=== PATIENT | female | born 1990 | race Caucasian/White ===

== ENCOUNTER 2020-03-13 05:30 | Inpatient (IN) ==
--- NOTE | 2020-03-12 15:50 | History & Physical Report ---
Date of Service March 12, 2020 Assessment & Plan (1) Previous delivery affecting , antepartum: Repeat section and bilateral tubal ligation. The patient was counseled to the nature of the procedure including alternatives such as labor. Risks were discussed including bleeding infection injury to bowel bladder ureter vessels and even baby. The risks of internal organ injury were discussed as being higher with prior sections. Deep Vein Thrombosis, pulmonary embolus and breakdown of the incision discussed. Deep vein thrombosis pulmonary embolus hernia and failure of the incision to heal were discussed Patient verbalized understanding of this and was given ample time to ask questions History of PP depression, wishes to go on pregesterone after. Discussed how this is non standard treatment, but she states it has worked in the past. History of Present Illness Primary Care Provider: NO PCP Planned repeat C/S x3 and tubal ligation, will be over 39 weeks completed GA. previos Hx of GHTN, not this Allergies Allergy/AdvReac Type Severity Reaction Status Date / Time azithromycin Allergy Severe Rash Verified 03/12/20 08:17 loratadine Allergy Severe Rash Verified 03/12/20 08:17 latex Allergy Intermediate Rash Verified 03/12/20 08:17 Home Medications Home Medications Medication Instructions Recorded Confirmed Type aspirin 81 mg tablet,delayed 81 mg PO QPM 02/03/20 03/12/20 History release cholecalciferol (vitamin D3) 100 4,000 units PO QPM 02/03/20 03/12/20 History mcg (4,000 unit) capsule docusate sodium 100 mg capsule 100 mg PO QPM 02/03/20 03/12/20 History fexofenadine 60 mg tablet 30 mg PO QPM 02/03/20 03/12/20 History prenat.vits,abiel,qtr-jezg-yjsfd 1 tab PO QPM 02/03/20 03/12/20 History pyridoxine (vitamin B6) 25 mg 25 mg PO QPM 02/03/20 03/12/20 History tablet aripiprazole [Abilify] 2 mg PO QPM 03/10/20 03/12/20 History diphenhydramine HCl [Benadryl] 25 mg PO QPM 03/10/20 03/12/20 History doxylamine-pyridoxine (vit B6) 1 tab PO QPM 03/10/20 03/12/20 History [Diclegis] magnesium 400 mg PO QPM 03/10/20 03/12/20 History sertraline [Zoloft] 50 mg PO QPM 03/10/20 03/12/20 History Patient History Medical History Anxiety and depression Bipolar 1 disorder GERD (gastroesophageal reflux disease) gestational Gestational hypertension H/O pre-eclampsia in prior , currently Hx of migraines Hx of varicella Nausea and vomiting after administration of anesthetic agent s/p epidural depression Surgical History (Updated 03/10/20 @ 15:20 by Kay Hughes, RN) H/O section x 2 H/O laparoscopy History of ovarian cystectomy History of tooth extraction Social History (Updated 02/03/20 @ 13:26 by Cici Kamara) Preferred Language: Barbadian Administrative Aide Required: No Beliefs That Will Affect Care: None marital status: marital status details: Lowell Chen (41) [phone] Current Living Situation: Family Current Living Situation Comment: lives with and children, 2 cats, does not change litter Feels Safe at Home: Yes Smoking Status: Never smoker Hx Alcohol Use: No Hx Substance Use: No Physical Exam Constitutional: WD/WN, vitals as above Respiratory: normal respiratory effort, lungs clear to auscultation Cardiovascular: RRR, no murmur, no edema Gastrointestinal (Abdomen): normal bowel sounds, soft, nontender, no hepatosplenomegaly Genitourinary: OB Exam Abdomen: + heart tones Coding Level of Care Code None Diagnoses Previous delivery affecting , antepartum O34.219
[2020-03-13] MEDS ORDERED: LR 15ML/HR IV SCH (06:00)
[2020-03-13] MEDS ORDERED: CITRIC ACID/SODIUM CITRATE 15 ML UDC PO SCH (06:00)
[2020-03-13] MEDS ORDERED: LACTATED RINGER'S 1,000 ML IV SCH ×2 (06:00→08:56)
[2020-03-13] MEDS ORDERED: CEFAZOLIN 3,000 MG in DEXTROSE 5% 50 ML IV SCH (06:00)
[2020-03-13] MEDS ORDERED: CEFAZOLIN 3000MG 72.5 ML IV SCH (06:00)
[2020-03-13 06:28] LABS: Eosinophils # (auto) 0.05 K/uL (0-0.5); Eosinophils % (auto) 0.8 %; Hematocrit (blood only) 30.6 % (37-47); Hemoglobin 10.1 g/dL (12.0-16.0); Immature Granulocytes # (auto) 0.02 K/uL (0.00-0.02); Immature Granulocytes % (auto) 0.3 %; Lymphocytes # (auto) 1.48 K/uL (1.2-3.4); Lymphocytes % (auto) 24.4 %; Mean Corpuscular Hemoglobin 28.8 pg (25-34); Mean Corpuscular Volume 87.2 fL (80-100); Monocytes # (auto) 0.57 K/uL (0.11-0.59); Monocytes % (auto) 9.4 %; Neutrophils # (auto) 3.94 K/uL (1.4-6.5); Neutrophils % (auto) 65.1 %; Platelet Count 172 K/uL (130-400); RDW Standard Deviation 44.1 fL (36.4-46.3); Red Blood Count 3.51 M/uL (4.2-5.4); White Blood Count 6.06 K/uL (4.8-10.8)
--- NOTE | 2020-03-13 06:38 | Anesthesiology Consultation ---
Date of Service March 13, 2020 Assessment & Plan (1) Encounter for pre-operative examination: Chart Review Chart Review: Acceptable Risk for Surgery Consults Requested none ASA ASA3 Proposed Anesthesia Anesthesia Type: Spinal Risk / Benefits Reviewed With: PT / POA / Parent / Guardian, Accepts Plan and Informed Consent Obtained History Surgery Operation Date: 03/13/20 07:30 Proposed Procedures p Section, - Asia Lemos MD, FACOG s Post Tubal Ligation - Asia Lemos MD, FACOG Height/Weight Height: 5 ft 6 in Weight: 115.212 kg Allergies Allergy/AdvReac Type Severity Reaction Status Date / Time azithromycin Allergy Severe Rash Verified 03/12/20 08:17 loratadine Allergy Severe Rash Verified 03/12/20 08:17 latex Allergy Intermediate Rash Verified 03/12/20 08:17 Medications Home Medications Medication Instructions Recorded Confirmed Last Taken aspirin 81 mg tablet,delayed 81 mg PO QPM 02/03/20 03/12/20 Unknown release cholecalciferol (vitamin D3) 100 4,000 units PO QPM 02/03/20 03/12/20 Unknown mcg (4,000 unit) capsule docusate sodium 100 mg capsule 100 mg PO QPM 02/03/20 03/12/20 Unknown fexofenadine 60 mg tablet 30 mg PO QPM 02/03/20 03/12/20 Unknown prenat.vits,abiel,avg-zuru-rqhmn 1 tab PO QPM 02/03/20 03/12/20 Unknown pyridoxine (vitamin B6) 25 mg 25 mg PO QPM 02/03/20 03/12/20 Unknown tablet aripiprazole [Abilify] 2 mg PO QPM 03/10/20 03/12/20 Unknown diphenhydramine HCl [Benadryl] 25 mg PO QPM 03/10/20 03/12/20 Unknown doxylamine-pyridoxine (vit B6) 1 tab PO QPM 03/10/20 03/12/20 Unknown [Diclegis] magnesium 400 mg PO QPM 03/10/20 03/12/20 Unknown sertraline [Zoloft] 50 mg PO QPM 03/10/20 03/12/20 Unknown Active Medications Generic Name Dose Route Start Last Admin Trade Name Freq PRN Reason Stop Dose Admin Lactated Ringer's 1,000 mls @ 999 mls/hr 03/13/20 06:00 03/13/20 05:47 Lr IV 03/13/20 07:00 999 mls/hr .Q1H1M PAULO Administration NPO Date Last Intake of Fluids: 03/12/20 Time Last Intake of Fluids: 23:00 Date Last Intake of Solids: 03/12/20 Time Last Intake of Solids: 20:00 Past Medical History Medical History Anxiety and depression taking Zoloft Bipolar 1 disorder GERD (gastroesophageal reflux disease) gestational Gestational hypertension H/O pre-eclampsia in prior , currently Hx of migraines Hx of varicella Nausea and vomiting after administration of anesthetic agent s/p epidural depression Exercise / Class Metabolic Activity II 4-5 Yardwork/Stairs/Walk up hill Past Family History Family History Father , age 39 Kidney disease Renal failure Mother Breast cancer Dyslipidemia Grandfather (Paternal) Parkinson disease Grandfather (Maternal) Alzheimer disease Brother Epilepsy Past Surgical History Surgical History H/O section x2, 01/2017 [facility], pre-eclampsia, 05/2018 [facility] repeat C/S H/O laparoscopy History of ovarian cystectomy History of tooth extraction Past Anesthesia History No Hx of Anesthesia Complications and No Family Hx of Anesthesia Complications History of PONV No Hx of PONV and No Hx of Motion Sickness Social History Smoking Status: Never smoker Do You Dip or Chew Tobacco: No Hx Alcohol Use: No Hx Substance Use: No substance use type: does not use Physical Exam Vital Signs Last Vital Signs Temp 98.4 F 03/13/20 05:41 Pulse 91 H 03/13/20 05:41 Resp 18 03/13/20 05:41 BP 138/74 03/13/20 05:41 ENMT Mouth: no dentition abnormality Thyromental Distance: > or= 3.5 Finger Breadths Mallampati Class: II Neck normal visual inspection Respiratory normal respiratory effort Auscultation: lungs clear to auscultation bilaterally Cardiovascular Rate/Rhythm: regular rate and regular rhythm Testing Laboratory Results 03/13/20 06:08
[2020-03-13] MEDS ORDERED: OXYTOCIN 10 UNITS/ML VIAL ONE (06:42)
[2020-03-13] MEDS ORDERED: fentaNYL citrate 100 MCG/2 ML VIAL ONE (06:42)
[2020-03-13] MEDS ORDERED: MoRPHine SULFATE PF 1 MG/ML 10 ML AMP/VIAL ONE (06:42)
--- NOTE | 2020-03-13 07:17 | History & Physical Bridge Note ---
Date of Service March 13, 2020 History & Physical Bridge Note I have examined the patient, reviewed the History & Physical and in the interval since the performance of the History & Physical I have noted the following changes of clinical significance: no changes noted
[2020-03-13] MEDS ORDERED: PHENYLEPHRINE 100MCG/ML 5ML SYR ONE (07:48)
[2020-03-13] MEDS ORDERED: ONDANSETRON INJ 2 MG/ML 2 ML VIAL ONE (07:48)
[2020-03-13] MEDS ORDERED: ePHEDrine sulfate 50 MG/ML AMP IV PRN (07:49)
[2020-03-13] MEDS ORDERED: MoRPHine SULFATE PF 1 MG/ML 10 ML AMP/VIAL INT SPINAL ONE (07:49)
[2020-03-13] MEDS ORDERED: NALBUPHINE HCL INJ 10 MG/ML AMP IV PRN (07:49)
[2020-03-13] MEDS ORDERED: DiphenhydrAMINE HCL 50 MG/ML VIAL IV PRN (07:49)
[2020-03-13] MEDS ORDERED: NALOXONE HCL 1 MG in SODIUM CHLORIDE 0.9% 1000ML 1,000 ML IV PRN (07:49)
[2020-03-13] MEDS ORDERED: LACTATED RINGER'S 500 ML IV PRN (07:49)
[2020-03-13] MEDS ORDERED: NALOXONE HCL 0.08 MG in SYRINGE 1.8 ML IV PRN (07:49)
[2020-03-13] MEDS ORDERED: NALOXONE HCL 0.4 MG/1 ML VIAL/CARP IV PRN (07:49)
[2020-03-13] MEDS ORDERED: ONDANSETRON INJ 2 MG/ML 2 ML VIAL IV PRN (07:49)
[2020-03-13] MEDS ORDERED: SODIUM CHLORIDE 0.9% 1000ML 1,000 ML IV SCH (08:00)
[2020-03-13] MEDS ORDERED: NO NARCOTICS OR SEDATIVES SCH (08:00)
[2020-03-13 08:25] LABS: Base Excess Cord Arterial Bld -5.4 mEq/L (-9-1.8); CO2 Cord Arterial Blood 40 mmHg (39.1-73.5); HCO3 Cord Arterial Blood 20 mmol/L (19.7-28.5); PO2 Cord Arterial Blood 33 mmHg (4.1-31.7); pH Cord Arterial Blood 7.32 (7.1-7.38)
[2020-03-13 08:29] LABS: Base Excess Cord Venous Blood -5.6 mEq/L (-7.7-1.9); Cord Venous Blood HCO3 20 mmol/L (18.4-26.8); Cord Venous Blood PCO2 38 mmHg (30.4-57.2); Cord Venous Blood PO2 32 mmHg (14.1-43.3); Cord Venous Blood pH 7.33 (7.20-7.44)
--- NOTE | 2020-03-13 08:37 | Operative Report ---
PG Post Operative Report Pre & Post Diagnosis Operation Date: 03/13/20 07:30 Pre-Op Diagnosis: Repeat Caesarean Section times three; Requests Tubal Ligation Post-Op Diagnosis: Same; Delivery of a live female child at 0757 I identified the patient and participated in the time-out.: Yes Procedure Operation Date: 03/13/20 07:30 Actual Procedures p Section, - Asia Lemos MD, FACOG s Post Tubal Ligation - Asia Lemos MD, FACOG Surgeon Asia Lemos MD, FACOG Recreation Supervisor Dr. Davila Estimated Blood Loss 600 Findings Consistent with Post-Op Diagnosis Specimens cord blood and gases Description of Procedure Regional anesthetic was given by anesthesia patient had a Solomon catheter inse rted by nursing patient was prepped and draped in supine position with a leftward tilt preoperative antibiotics were given timeout performed Pickups with teeth were used to test the skin site and it was found adequate for incision scalpel used to make a Pfannenstiel incision cutting down through subcutaneous fat through the fascia fascia was then dissected laterally with the curved Rothman's fascia was released superiorly and inferiorly from the rectus muscles with the curved Rothman scissors, rectus muscle split peritoneal cavity entered in a superior location. Opening enlarged to allow exposure bladder retractor placed Metzenbaums used to dissect away the bladder flap low segment transverse incision made on the uterus with scalpel entry was done bluntly with the benzene still utility operator's finger hysterotomy incision extended with the benzene still utility operator's finger in the usual fashion baby was delivered then by flexion of the head and pressure from the senior executive assistant on the abdomen mouth and then nares were suctioned baby was then delivered fully without difficulty without excessive force live vigorous infant cord clamped and cut cord gases obtained cord blood obtained placenta removed manually within ensured all placenta removed with a moist lap sponge uterus exteriorized IV Pitocin had been started by anesthesia and uterine tone improved. The uterus was closed in 2 layers first layer and 0 Monocryl running locked second layer 0 Monocryl nonlocked. Tubal ligation performed by grasping the isthmic portion of right tube with silvia, ligating 2 times with suture, then tubal segment cut with Liz. Same exact process with the left side. Small left paratubal cyst noted. after generous irrigation and suction of the cul-de-sac and bladder flap regions hemostasis was excellent uterus was placed back in the peritoneal cavity and hemostasis was excellent rectus muscles were inspected and found to be dry fascia closed with 0 Vicryl subcutaneous fat closed with 3-0 Vicryl prior to this subcutaneous fat was irrigated skin closed with 4-0 subcuticular Monocryl incision JOYCELYN dressing urine was clear at the end of the procedure I attest to the content of the Intraoperative Record and any orders documented therein. Any exceptions are noted below.
[2020-03-13] MEDS ORDERED: DIPHTHERIA/TETANUS/PERTUSSIS 0.5 ML SYR/VIAL IM ONE (08:56)
[2020-03-13] MEDS ORDERED: HYDROCORTISONE ACETATE 25 MG SUPP PR PRN (08:56)
[2020-03-13] MEDS ORDERED: SENNA 8.6 MG TAB PO PRN (08:56)
[2020-03-13] MEDS ORDERED: MAGNESIUM HYDROXIDE SUSP 30 ML UDC PO PRN (08:56)
[2020-03-13] MEDS ORDERED: SUPERCREAM 0.870% 15 GM JAR EXT PRN (08:56)
[2020-03-13] MEDS ORDERED: BENZOCAINE 20% AER SPR 82.5 GM CAN EXT PRN (08:56)
--- NOTE | 2020-03-13 09:09 | Anesthesiology Progress Note ---
Date of Service March 13, 2020 Anesthesia Post Procedure Vital Signs Vital Signs: Temp Pulse Resp BP Pulse Ox 03/13/20 09:06 62 97 03/13/20 09:03 62 110/56 L 03/13/20 09:01 68 86/49 L 100 03/13/20 08:56 61 100 03/13/20 08:51 64 100/52 L 99 03/13/20 08:47 59 L 91 03/13/20 08:46 60 99 03/13/20 08:41 57 L 111/59 L 100 03/13/20 05:41 98.4 F 91 H 18 138/74 03/13/20 05:40 91 H 138/74 Transfer of Care Handoff Completed per policy Notes Mental Status: alert / awake / arousable and participated in evaluation Patient Amnestic to Procedure: Yes Nausea / Vomiting: adequately controlled Pain: adequately controlled Airway Patency, RR, SpO2: stable & adequate BP & HR: stable & adequate Hydration State: stable & adequate Neuraxial Anesthesia: was administered and sensory block is resolving Anesthetic Complications: no major complications apparent and Pt Satisfied with anesthetic care
[2020-03-13] MEDS: OXYTOCIN 20 UNITS in LACTATED RINGER'S 1,000 ML IV SCH ×2 (09:16→17:15)
[2020-03-13] MEDS: KETOROLAC 30 MG/ML VIAL IV PRN ×2 (10:58→19:38)
[2020-03-13] MEDS: MEPERIDINE HCL 25 MG/ML CARP/VIAL IV PRN ×2 (12:08→21:00)
[2020-03-13] MEDS: SIMETHICONE 80 MG CHEW PO SCH ×3 (14:01→20:51)
[2020-03-13] MEDS: SERTRALINE HCL 50 MG TABLET PO SCH (20:34)
[2020-03-13] MEDS: MAGNESIUM OXIDE 400 MG TAB PO SCH (20:34)
[2020-03-13] MEDS: ARIPIprazole 1 MG/ML ORAL SOLN 150 ML BTL PO SCH (20:36)
[2020-03-13] MEDS: CHOLECALCIFEROL 1,000 UNITS 25 MCG TAB PO SCH (20:37)
[2020-03-13] MEDS: PYRIDOXINE HCL 50 MG TAB PO SCH (20:37)
[2020-03-13] MEDS: FEXOFENADINE 60 MG TAB PO SCH (20:46)
[2020-03-13] MEDS: DOCUSATE SODIUM 100 MG CAP PO SCH (20:51)
[2020-03-13] MEDS ORDERED: NON-FORMULARY MEDICATION (Prenat.Vits,Cal,Min-Iron-Folic 1 TAB) PO SCH (21:00)
[2020-03-14] MEDS ORDERED: MEPERIDINE HCL 50 MG/ML CARP IV PRN (01:49)
[2020-03-14] MEDS ORDERED: PROMETHAZINE HCL 25 MG in SODIUM CHLORIDE 0.9% 50 ML IV PRN (01:49)
[2020-03-14] MEDS ORDERED: ONDANSETRON INJ 2 MG/ML 2 ML VIAL IV PRN (01:49)
[2020-03-14] MEDS ORDERED: DC INTRASPINAL MORPHINE ONE (01:49)
[2020-03-14] MEDS ORDERED: DiphenhydrAMINE HCL 50 MG/ML VIAL IV PRN (01:49)
[2020-03-14] MEDS ORDERED: KETOROLAC 30 MG/ML VIAL IV PRN (01:49)
[2020-03-14] MEDS: IBUPROFEN 600 MG TAB PO PRN ×6 (01:57→21:47)
[2020-03-14] MEDS: OXYCODONE/ACETAMINOPHEN 5mg/325mg TAB PO PRN ×6 (01:58→21:47)
[2020-03-14 05:42] LABS: Eosinophils # (auto) 0.07 K/uL (0-0.5); Eosinophils % (auto) 0.9 %; Hematocrit (blood only) 26.4 % (37-47); Immature Granulocytes # (auto) 0.01 K/uL (0.00-0.02); Immature Granulocytes % (auto) 0.1 %; Lymphocytes # (auto) 1.54 K/uL (1.2-3.4); Lymphocytes % (auto) 19.6 %; Mean Corpuscular Hemoglobin 29.3 pg (25-34); Mean Corpuscular Hgb Conc 34.1 g/dL (32-36); Mean Platelet Volume 9.5 fL (7.4-10.4); Monocytes # (auto) 0.79 K/uL (0.11-0.59); Monocytes % (auto) 10.1 %; Neutrophils # (auto) 5.45 K/uL (1.4-6.5); Neutrophils % (auto) 69.3 %; Platelet Count 127 K/uL (130-400); RDW Coefficient of Variation 13.8 % (11.5-14.5); Red Blood Count 3.07 M/uL (4.2-5.4); White Blood Count 7.86 K/uL (4.8-10.8)
--- NOTE | 2020-03-14 07:41 | Obstetrical Progress Note ---
Date of Service March 14, 2020 Assessment & Plan (1) Previous delivery affecting , antepartum: struggling with depression. psych consult otherwise cont current care no ext tenderness Subjective Ambulation: ambulating normally Voiding: no voiding problems Passing Gas:: No Diet Tolerance:: regular diet Lochia:: Small Feeding Type:: breast feeding Results & Data Vital Signs (Past 12 Hours) Vital Signs Temp Pulse Resp BP Pulse Ox 03/14/20 03:41 97.7 F 62 18 112/69 95 03/14/20 02:30 18 100 03/14/20 00:35 98.2 F 61 18 121/77 100 03/13/20 23:15 18 96 03/13/20 22:00 16 94 03/13/20 21:00 18 97 03/13/20 20:05 18 97
--- NOTE | 2020-03-14 08:10 | Obstetrical Progress Note ---
Date of Service Note, I reviewed my concerns with her about progesterone as a first line anti depressant. I explained why I feel a psych consult would be best considering the other meds she is on and she is agreeable March 14, 2020 Results & Data Vital Signs (Past 12 Hours) Vital Signs Temp Pulse Resp BP Pulse Ox 03/14/20 03:41 97.7 F 62 18 112/69 95 03/14/20 02:30 18 100 03/14/20 00:35 98.2 F 61 18 121/77 100 03/13/20 23:15 18 96 03/13/20 22:00 16 94 03/13/20 21:00 18 97 PG Care Time/CCT Total # of Minutes Spent Total Time Spent with Patient: Total time spent is greater than 50% in coordination of care (as documented) at patient's floor/unit and/or counseling patient: Coding Level of Care Code None
[2020-03-14] MEDS: PRENATAL VITAMIN 1 TAB PO SCH ×2 (08:59→09:05)
[2020-03-14] MEDS: DOCUSATE SODIUM 100 MG CAP PO SCH ×2 (08:59→20:16)
[2020-03-14] MEDS: SIMETHICONE 80 MG CHEW PO SCH ×4 (08:59→20:20)
--- NOTE | 2020-03-14 12:57 | Psychiatric Consultation ---
Date of Consultation March 14, 2020 Impression / Recommendations Impression 29 yo female with clear history of bipolar disorder, more likely I vs II with depressive episodes that previously responded robustly to short-term progesterone post-. Plan: There is no indication for inpatient psychiatric admission. She agrees to contact her most recent treatment providers in [place] for possible telehealth sessions under the Governor's licensure waiver as first 2 weeks post- are partida and unlikely she will be able to establish locally within that time. Liaison to provide the [facility] handbook with crisis information and highlight most appropriate referral sources. Given need for therapy and psychiatry, MICHELINE signed for [facility] and can fax consult. If leaves over weekend patient will be responsible for follow up calls and she and her are fine with that. Reviewed risks/benefits/alternatives re: her psychiatric medications in . Reviewed that risks/benefits of progesterone are best discussed with OB service. In my opinion, makes most sense to use an agent (progesterone) that worked previously in addition to current psych meds as there is risk of inducing eulalia with increases in Zoloft. If progesterone is absolutely not indic ated per OB, I'd suggest 75 mg Zoloft for 2 weeks prior to any titration to ensure not activating. Risk Factors Assessment Do You Have Access To A Gun?: No Psych History Identifying Data 29 yo female, seen with at bedside, recently moved to [place] from [facility]. Consult is by Dr. Lemos for history of post depression. Chief Complaint "I took progesterone very successfully before post and really feel it worked". History of Present Illness 3rd in 3 years, history of bipolar symptoms since early 20s. "luckily" during her manic episodes she hasn't been psychotic and "never" suicidal but has had impulsive spending and binge drinking, periods of inability to sleep for great than 4 days at a time. She would having racing and intrussive thoughts/cleaning and was verbally aggressive 7 years ago, last hypomanic episode >2 years. Symptoms have occurred on and off antidepressant medications and depressed phases have mainly come post . Her overall mood hasn't been "the best" during but seems to have done OK with the move to live in the dorms as her got a job with [employer] in [facility] life. Kids (2 and 3 yo) are currently with her mother in [place] which she is thankful for. Denies vegetative symptoms of depression, states her appetite hasn't been as good late in the . At baseline has maybe 1 panic attack a month, now daily anxiety,, no constant, increased following her as doesn't know current providers as well as previous [facility]. Post symptoms previously included excessive worry and crying (no SI/HI/eulalia/psychosis) and responded well to progesterone 200 mg for a few weeks with taper. Symptoms improved dramatically within a few hours. Progesterone was given in addition to her psych meds at the time. I had been called on patient last pm as she was wondering about prn for anxiety, ultimately she did not take benadryl IV prn. Past Psychiatric History Previous Psych History: had ongoing therapy with [facility] in [facility], last session 6 weeks ago as were moving and just transitioning to telehealth, had only seen psychiatrist there a few times but been on meds longer, had also seen a women's health psychiatrist in [place] for a second opinion prior to restarting Abilify at lower dose in . Higher doses made her tired previously. Outpatient Services: not yet established in this area Previous Psych Admissions: none Do You Have Access To A Gun?: No History of Previous Suicide Attempt: No Past Medication Trials: Lexapro fall 2018, Wellbutrin, Latuda prior to Abilify (Vomit) Allergies Allergy/AdvReac Type Severity Reaction Status Date / Time azithromycin Allergy Severe Rash Verified 03/12/20 08:17 loratadine Allergy Severe Rash Verified 03/12/20 08:17 latex Allergy Intermediate Rash Verified 03/12/20 08:17 Home Medications Home Medications Medication Instructions Recorded Confirmed Type aspirin 81 mg tablet,delayed 81 mg PO QPM 02/03/20 03/12/20 History release cholecalciferol (vitamin D3) 100 4,000 units PO QPM 02/03/20 03/12/20 History mcg (4,000 unit) capsule docusate sodium 100 mg capsule 100 mg PO QPM 02/03/20 03/12/20 History fexofenadine 60 mg tablet 30 mg PO QPM 02/03/20 03/12/20 History prenat.vits,abiel,ypq-atjl-cctnl 1 tab PO QPM 02/03/20 03/12/20 History pyridoxine (vitamin B6) 25 mg 25 mg PO QPM 02/03/20 03/12/20 History tablet aripiprazole [Abilify] 2 mg PO QPM 03/10/20 03/12/20 History diphenhydramine HCl [Benadryl] 25 mg PO QPM 03/10/20 03/12/20 History doxylamine-pyridoxine (vit B6) 1 tab PO QPM 03/10/20 03/12/20 History [Diclegis] magnesium 400 mg PO QPM 03/10/20 03/12/20 History sertraline [Zoloft] 50 mg PO QPM 03/10/20 03/12/20 History Family History D&A in grandfather Substance Abuse History binge drinking during manic episodes 7 years or more ago, no drugs Personal History Living Arrangements: [facility] Living Arrangements Comments: with and small children Born In: [facility] Highest Grade Completed: College (BS) Marital Status: Number Of Children: 3 Beliefs That Will Affect Care: None History of Legal Problems: none Psychological Trauma History Comment: none Patient History Medical History Anxiety and depression taking Zoloft Bipolar 1 disorder GERD (gastroesophageal reflux disease) gestational Gestational hypertension H/O pre-eclampsia in prior , currently Hx of migraines Hx of varicella Nausea and vomiting after administration of anesthetic agent s/p epidural depression Surgical History H/O section x2, 01/2017 [facility] FTP, pre-eclampsia, 05/2018 [facility] repeat C/S H/O laparoscopy History of ovarian cystectomy History of tooth extraction Family History Father , age 39 Kidney disease Renal failure Mother Breast cancer Dyslipidemia Grandfather (Paternal) Parkinson disease Grandfather (Maternal) Alzheimer disease Brother Epilepsy Social History Preferred Language: Luxembourgish Communication Ability: Effective Retrofit Installer Required: No Beliefs That Will Affect Care: None marital status: marital status details: Lowell Gustavo (42) [phone] Current Living Situation: Spouse and Family Current Living Situation Comment: lives with and children, 2 cats, does not change litter Other Information That Helps Us Care for You: No Feels Safe at Home: Yes Safety Concerns: Feels Safe At This Time Smoking Status: Never smoker Do You Dip or Chew Tobacco: No ; Second Hand Exposure: No ; Tobacco Cessation Education Requested by Patient: No Hx Alcohol Use: No Hx Substance Use: No Physical Exam Psychiatric: Orientation: alert and oriented x 3 Apperance: appropriately groomed Eye Contact: good eye contact Motor Behavior: no abnormal motor movements Speech: normal rate/rhythm/volume of speech Affect: + depressed affect Mood: + anxious mood Thought Process: goal directed thought process Thought Content: reality based without delusions Suicidal Thoughts: denies suicidal thoughts Homicidal Thoughts: denies homicidal thoughts Hallucinations: no auditory hallucinations and no visual hallucinations Cognition: attention grossly intact Estimated Intelligence: consistent with education level Insight: + fair insight Judgement: + fair judgement Vital Signs (Past 24 Hours): Last Vital Signs Temp 36.7 C 03/14/20 07:55 Pulse 56 L 03/14/20 07:55 Resp 16 03/14/20 07:55 BP 115/77 03/14/20 07:55 Pulse Ox 97 03/14/20 07:55 Review of Systems All systems reviewed & are unremarkable except as noted in HPI & below Results & Data (PSY) Medications Administered Aripiprazole (Abilify) 2 mg PO QPM PAULO Stop: 04/12/20 20:59 Last Admin: 03/13/20 20:36 Dose: 2 mg Documented by: [id number] Docusate Sodium (Colace) 100 mg PO DAILY@, PAULO Stop: 04/12/20 20:59 Last Admin: 03/14/20 08:59 Dose: 100 mg Documented by: [id number] Admin: 03/13/20 20:51 Dose: 100 mg Documented by: [id number] Fexofenadine HCl (Natali) 30 mg PO QPM PAULO Stop: 04/12/20 20:59 Last Admin: 03/13/20 20:46 Dose: 30 mg Documented by: [id number] Ibuprofen (Motrin) 600 mg PO Q4H PRN PRN Reason: Pain Stop: 04/13/20 01:48 Last Admin: 03/14/20 09:24 Dose: 600 mg Documented by: [id number] Admin: 03/14/20 06:04 Dose: 600 mg Documented by: [id number] Admin: 03/14/20 01:57 Dose: 600 mg Documented by: [id number] Magnesium Oxide (Mag-Ox) 400 mg PO QPM PAULO Stop: 04/12/20 20:59 Last Admin: 03/13/20 20:34 Dose: 400 mg Documented by: [id number] Miscellaneous (Order Awaiting Action) 1 ea N/A QS PAULO Stop: 04/12/20 15:59 Last Admin: 03/13/20 17:18 Dose: Not Given Documented by: [id number] Oxycodone/Acetaminophen (Percocet 5mg/325mg) 1 - 2 tab PO Q4H PRN PRN Reason: Pain Stop: 03/28/20 01:48 Last Admin: 03/14/20 09:25 Dose: 1 tab Documented by: [id number] Admin: 03/14/20 06:03 Dose: 1 tab Documented by: [id number] Admin: 03/14/20 01:58 Dose: 1 tab Documented by: [id number] Prenat Multivit/[place]/Iron/Folic Ac ( Vitamin) 1 tab PO DAILY@08 PAULO Stop: 04/13/20 07:59 Last Admin: 03/14/20 09:05 Dose: Not Given Documented by: [id number] Pyridoxine HCl (Vitamin B-6) 25 mg PO QPM PAULO Stop: 04/12/20 20:59 Last Admin: 03/13/20 20:37 Dose: 25 mg Documented by: [id number] Sertraline HCl (Zoloft) 50 mg PO QPM PAULO Stop: 04/12/20 20:59 Last Admin: 03/13/20 20:34 Dose: 50 mg Documented by: [id number] Simethicone (Mylicon) 80 mg PO DAILY@08,13,17,21 PAULO Stop: 04/12/20 12:59 Last Admin: 03/14/20 12:06 Dose: 80 mg Documented by: [id number] Admin: 03/14/20 08:59 Dose: 80 mg Documented by: [id number] Admin: 03/13/20 20:51 Dose: 80 mg Documented by: [id number] Admin: 03/13/20 17:15 Dose: 80 mg Documented by: [id number] Admin: 03/13/20 14:01 Dose: Not Given Documented by: [id number] Vitamin D (Vitamin D3) 4,000 units PO QPM PAULO Stop: 04/12/20 20:59 Last Admin: 03/13/20 20:37 Dose: 4,000 units Documented by: [id number] Coding Level of Care Code 24885 [facility] Intl Hosp Care Lvl 2
--- NOTE | 2020-03-14 13:09 | Anesthesiology Progress Note ---
Date of Service March 14, 2020 Anesthesia Post Procedure Vital Signs Vital Signs: Temp Pulse Resp BP Pulse Ox 03/14/20 07:55 36.7 C 56 L 16 115/77 97 03/14/20 03:41 36.5 C 62 18 112/69 95 03/14/20 02:30 18 100 03/14/20 00:35 36.8 C 61 18 121/77 100 03/13/20 23:15 18 96 03/13/20 22:00 16 94 03/13/20 21:00 18 97 03/13/20 20:05 18 97 03/13/20 19:15 36.9 C 64 18 126/81 100 03/13/20 18:43 18 97 03/13/20 18:03 20 96 03/13/20 17:42 20 98 03/13/20 16:34 20 97 03/13/20 15:30 36.7 C 63 20 112/72 97 03/13/20 14:45 16 98 03/13/20 13:37 20 100 Pain Intensity Bilateral Lower Abdomen: Pain Intensity: 7 Transfer of Care Handoff Completed per policy Notes Mental Status: alert / awake / arousable and participated in evaluation Nausea / Vomiting: adequately controlled Pain: adequately controlled Airway Patency, RR, SpO2: stable & adequate BP & HR: stable & adequate Hydration State: stable & adequate Neuraxial Anesthesia: was administered and sensory block resolved Anesthetic Complications: no major complications apparent and Pt Satisfied with anesthetic care Notes: Patient denies headache this morning. Has been up walking without weakness or residual numbness. Patient encouraged to contact anesthesia for any concerns or new headache
[2020-03-14] MEDS ORDERED: bisacodyL 5 MG TABEC PO SCH (20:00)
[2020-03-14] MEDS: CHOLECALCIFEROL 1,000 UNITS 25 MCG TAB PO SCH (20:16)
[2020-03-14] MEDS: PYRIDOXINE HCL 50 MG TAB PO SCH (20:18)
[2020-03-14] MEDS: SERTRALINE HCL 50 MG TABLET PO SCH (20:19)
[2020-03-14] MEDS: FEXOFENADINE 60 MG TAB PO SCH (20:19)
[2020-03-14] MEDS: MAGNESIUM OXIDE 400 MG TAB PO SCH (20:19)
[2020-03-14] MEDS: ARIPIprazole 1 MG/ML ORAL SOLN 150 ML BTL PO SCH (20:20)
[2020-03-15] MEDS: OXYCODONE/ACETAMINOPHEN 5mg/325mg TAB PO PRN ×4 (02:04→12:57)
[2020-03-15] MEDS: IBUPROFEN 600 MG TAB PO PRN ×3 (02:05→12:58)
[2020-03-15 06:01] LABS: Hematocrit (blood only) 27.4 % (37-47)
[2020-03-15] MEDS: DOCUSATE SODIUM 100 MG CAP PO SCH (07:49)
[2020-03-15] MEDS: SIMETHICONE 80 MG CHEW PO SCH ×2 (07:50→12:57)
[2020-03-15] MEDS: PRENATAL VITAMIN 1 TAB PO SCH ×2 (07:50→07:52)
--- NOTE | 2020-03-15 08:07 | Obstetrical Progress Note ---
Date of Service March 15, 2020 Assessment & Plan (1) Previous delivery affecting , antepartum: - patient desires d/c - instructions given/ Rx sent - f/u scheduled for post-op checks (2) Hx of depression, currently : - patient seen by Psych - no contraindication to progesterone - prometrium not on formulary - outpatient Rx sent to pharmacy, pt started yesterday Subjective Ambulation: ambulating normally Voiding: no voiding problems Feeding Type:: breast feeding Physical Exam Constitutional WD/WN, vitals as above Respiratory normal respiratory effort, lungs clear to auscultation Cardiovascular RRR, no murmur, no edema Gastrointestinal (Abdomen) JOYCELYN dressing in place Musculoskeletal (-) deep calf tenderness Results & Data Vital Signs (Past 12 Hours) Vital Signs Temp Pulse Resp BP Pulse Ox 03/14/20 23:30 97.7 F 68 18 135/83 97
[2020-03-15] MEDS ORDERED: bisacodyL 10 MG SUPP PR PRN (08:32)
--- NOTE | 2020-03-17 14:52 | Discharge Summary ---
Date of Service March 17, 2020 Admission HPI Per Admitting Provider Planned repeat C/S x3 and tubal ligation, will be over 39 weeks completed GA. previos Hx of GHTN, not this Admission Exam (Per Admitting) Constitutional WD/WN, vitals as above Respiratory normal respiratory effort, lungs clear to auscultation Cardiovascular RRR, no murmur, no edema Gastrointestinal (Abdomen) normal bowel sounds, soft, nontender, no hepatosplenomegaly Discharge Data Consultations 03/13/20 05:31 Consult Anesthesiology Stat 03/13/20 15:39 Consult Psychiatry Routine Procedures Performed Operation Date: 03/13/20 07:30 Actual Procedures p Section, - Asia Lemos MD, FACOG s Post Tubal Ligation - Asia Lemos MD, FACOG Hospital Course (1) Previous delivery affecting , antepartum: - patient desires d/c - instructions given/ Rx sent - f/u scheduled for post-op checks (2) Hx of depression, currently : - patient seen by Psych - no contraindication to progesterone - prometrium not on formulary - outpatient Rx sent to pharmacy, pt started yesterday Coding Level of Care Code None Diagnoses Previous delivery affecting , antepartum O34.219 Hx of depression, currently O99.89; Z86.59
== END 2020-03-15 14:10 | disposition home or self-care (01) | DRG 785 ==
LOC: 4S1 05:30 → EDSTATUS 07:30 → 4N 11:13 → 4S2 03-14 14:16
PROC: M.PPTLD (2020-03-13 07:30)

== ENCOUNTER 2020-08-20 09:49 | Inpatient (IN) ==
--- NOTE | 2020-08-20 10:09 | Emergency Department Note ---
Impression & Plan Depression with suicidal ideation ED Provider Note Provider: Phillip Moyer MD DATE OF SERVICE:08/20/2020 CHIEF COMPLAINT: Depression, suicidal thoughts HISTORY OF PRESENT ILLNESS: Patient is a 30-year-old female history of depression presenting here today stating of the past 5 months she has been having severe depression was getting worse and now has thoughts of going to harm her self by overdosing on medication. Patient states that she seen her psychiatrist recently taken off Cymbalta and is currently on Klonopin. Patient was recently seen several days ago in the emergency department and sent home. Patient states since then things have worsened. Recent inpatient voluntary hospitalization for psychiatric issues and depression just over a month ago at the [facility]. Patient also states that she is now having voices telling her to harm her self and to harm her self. Denies any attempt. Patient states she feels any inpatient treatment. Patient endorses sleeping significantly but has been eating. REVIEW OF SYSTEMS: A total of 10 review of systems was obtained and negative except as stated above in the HPI. PAST MEDICAL HISTORY: As noted above and states a long history of some depression anxiety but much worsened since the of her latest child MEDICATIONS: Reviewed on medication with the patient SOCIAL HISTORY: lives with and 3 young children PHYSICAL EXAM: GENERAL: alert and oriented sitting on bed Head: normocephalic and atraumatic EYES: No injection, discharge or icterus. ENT: Mucous membranes pink and moist. LUNGS: Airway patent. No retractions. Breath sounds clear HEART: Regular rate and rhythm. No chest wall tenderness SKIN: Acyanotic, warm, dry, without rashes EXTREMITIES: Without obvious deformity. NEUROLOGICAL: No focal deficits. No aphasia. No slurred speech. Psych: Endorses depression and has a flat affect. States she has suicidal ideations and plan to overdose on medication. Endorses auditory hallucination b ut denies visual hallucinations not responding to external stimuli while in the room. Patient's laboratory studies reviewed. Differential includes Mood disorder, infection, hypoglycemia, electrolyte abnormalities, cardiac sources, intracerebral event, toxicologic, trauma, neurologic, as well as other pathologies. IMPRESSION/MEDICAL DECISION MAKING: Patient presents here with concerns about worsening depression and suicidal ideation. Wonder provoked due to her recent 5 months ago as is now started in the state. Now also endorsing auditory hallucinations commanding her to harm her self. Patient is voluntary for inpatient treatment. Medical labs obtained here. Reviewed this without significant abnormality noted. No evidence of significant overdose or metabolic derangement. Seen conjunction with the caser in. Believe inpatient referral for inpatient psychiatric care given her worsening state is reasonable and likely beneficial. Negative COVID test for placement was obtained. Bed search was initiated. Given afternoon medication of hydroxyzine. Evaluated by [facility] for inpatient care here and is accepted. DIAGNOSIS: Depression with suicidal ideation DISPOSITION: Accepted to [facility] further inpatient psychiatric care, on 201. Past Med/Surg History Medical History (Updated 08/20/20 @ 10:22 by Phillip Moyer M.D.) Anxiety and depression taking Zoloft Bipolar 1 disorder GERD (gastroesophageal reflux disease) gestational Gestational hypertension H/O pre-eclampsia in prior , currently Hx of migraines Hx of varicella Nausea and vomiting after administration of anesthetic agent s/p epidural depression Surgical History H/O section x2, 01/2017 [facility] FTP, pre-eclampsia, 05/2018 [facility] repeat C/S H/O laparoscopy History of ovarian cystectomy History of tooth extraction Family History Father , age 39 Kidney disease Renal failure Mother Breast cancer Dyslipidemia Grandfather (Paternal) Parkinson disease Grandfather (Maternal) Alzheimer disease Brother Epilepsy Social History Smoking Status: Former smoker Tobacco Type: Cigarettes Second Hand Exposure: No; Hx Alcohol Use: No Hx Substance Use: No Preferred Language: Korean Communication Ability: Effective Asian Studies Program Chair Required: No Beliefs That Will Affect Care: None marital status: marital status details: Lowell Chen (42) [phone] Current Living Situation: Spouse and Family Current Living Situation Comment: lives with and children, 2 cats, does not change litter Feels Safe at Home: Yes Assistive Devices: None Allergies Allergies Allergy/AdvReac Type Severity Reaction Status Date / Time azithromycin Allergy Severe Rash Verified 08/20/20 12:15 loratadine Allergy Severe Rash Verified 08/20/20 12:15 latex Allergy Intermediate Rash Verified 08/20/20 12:15 lactose AdvReac Mild Gastrointestinal Unverified 08/20/20 16:27 Upset Home Meds Home Medications Medication Instructions Recorded Confirmed aripiprazole 30 mg PO DAILY 06/06/20 08/20/20 clonazepam 1 mg PO UD PRN 06/06/20 08/20/20 hydroxyzine HCl 50 mg PO TID PRN 08/18/20 08/20/20 cholecalciferol (vitamin D3) 25 mcg PO DAILY 08/20/20 08/20/20 [Vitamin D3] pediatric multivitamin no.29 1 tab PO DAILY 08/20/20 08/20/20 [Gummies Girls' Multivitamins] Results & Data (ED) Vital Signs Vital Signs - 24 hr 08/20/20 09:57 08/20/20 12:10 Temperature 36.9 C Temperature Source Oral Pulse Rate 98 H Pulse Rate [Radial] 84 Pulse Rhythm [Radial] Regular Pulse Strength [Radial] Normal Respiratory Rate 20 16 Respiratory Effort / Characteristics Non-Labored Non-Labored Spontaneous Respiratory Depth Normal Normal Respiratory Pattern Regular Regular Blood Pressure 134/84 Blood Pressure [Left Arm] 117/80 Blood Pressure Mean 100 Blood Pressure Mean [Left Arm] 92 Pulse Oximetry 98 98 Oxygen Delivery Method Room Air Room Air Sepsis Recent Fever Within 48 Hours No Sepsis New/Unexplained Change in Mental Status N/A Sepsis Action Taken by Nursing No Action Required Laboratory Data Result diagrams: 08/20/20 11:30 08/20/20 11:30 Lab Results 08/20/20 08/20/20 08/20/20 Range/Units 10:10 10:10 10:10 WBC (4.8-10.8) K/uL RBC (4.2-5.4) M/uL Hgb (12.0-16.0) g/dL Hct (37-47) % MCV (80-100) fL MCH (25-34) pg MCHC (32-36) g/dL RDW Std Deviation (36.4-46.3) fL RDW Coeff of Merlin (11.5-14.5) % Plt Count (130-400) K/uL MPV (7.4-10.4) fL Immature Gran % (Auto) % Neut % (Auto) % Lymph % (Auto) % [place] % (Auto) % Eos % (Auto) % Baso % (Auto) % Neut # (Auto) (1.4-6.5) K/uL Lymph # (Auto) (1.2-3.4) K/uL [place] # (Auto) (0.11-0.59) K/uL Eos # (Auto) (0-0.5) K/uL Baso # (Auto) (0-0.2) K/uL Immature Gran # (Auto) (0.00-0.02) K/uL Sodium (136-145) mmol/L Potassium (3.5-5.1) mmol/L Chloride (98-107) mmol/L Carbon Dioxide (21-32) mmol/L Anion Gap (3-11) BUN (7-18) mg/dl Creatinine (0.6-1.2) mg/dl Est Cr Clr Drug Dosing ml/min Est GFR ( Amer) Est GFR (Non-Af Amer) BUN/Creatinine Ratio (10-20) Glucose (70-99) mg/dl Calcium (8.5-10.1) mg/dl Total Bilirubin (0.2-1) mg/dl AST (15-37) U/L ALT (12-78) U/L Alkaline Phosphatase (45-117) U/L Total Protein (6.4-8.2) gm/dl Albumin (3.4-5.0) gm/dl Globulin (2.5-4.0) gm/dl Albumin/Globulin Ratio (0.9-2) TSH (0.300-4.500) uIu/ml Urine Color [place] Urine Appearance Clear (Clear) Urine pH 7.0 (4.5-7.5) Ur Specific [place] 1.008 (1.000-1.030) Urine Protein Negative (Negative) Urine Glucose (UA) Negative (Negative) Urine Ketones Negative (Negative) Urine Blood 3+ H (Negative) Urine Nitrite Negative (Negative) Urine Bilirubin Negative (Negative) Urine Urobilinogen Negative (Negative) Ur Leukocyte Esterase Negative (Negative) Urine WBC (Auto) 1-5 (0-5) /hpf Urine RBC (Auto) 0-4 (0-4) /hpf U Hyaline Cast (Auto) 0 (0-5) /lpf U Epithel Cells (Auto) 20-30 H (0-5) /lpf Urine Bacteria (Auto) Negative (Negative) POC Ur Test NEG (NEG) Salicylates (2.8-20) mg/dl Urine Opiates Screen Neg (Neg) Ur Methadone, Qual Neg (Neg) Acetaminophen (10-30) ug/ml Urine Barbiturates Neg (Neg) Ur Phencyclidine (PCP) Neg (Neg) U Amphetamin/Meth Scrn Neg (Neg) MDMA (Ecstasy) Screen Neg (Neg) U Benzodiazepines Scrn Neg (Neg) Ur Cocaine Metabolite Neg (Neg) U Marijuana (THC) Screen Neg (Neg) Ethyl Alcohol mg/dL (0-3) mg/dl COVID-19 Eval Order SARS-CoV-2, RNA, NAAT (NEGATIVE) 08/20/20 08/20/20 08/20/20 Range/Units 11:30 11:30 11:30 WBC 4.88 (4.8-10.8) K/uL RBC 4.37 (4.2-5.4) M/uL Hgb 12.4 (12.0-16.0) g/dL Hct 37.8 (37-47) % MCV 86.5 (80-100) fL MCH 28.4 (25-34) pg MCHC 32.8 (32-36) g/dL RDW Std Deviation 42.5 (36.4-46.3) fL RDW Coeff of Merlin 13.3 (11.5-14.5) % Plt Count 282 (130-400) K/uL MPV 9.7 (7.4-10.4) fL Immature Gran % (Auto) 0.2 % Neut % (Auto) 62.7 % Lymph % (Auto) 31.4 % [place] % (Auto) 4.7 % Eos % (Auto) 0.8 % Baso % (Auto) 0.2 % Neut # (Auto) 3.06 (1.4-6.5) K/uL Lymph # (Auto) 1.53 (1.2-3.4) K/uL [place] # (Auto) 0.23 (0.11-0.59) K/uL Eos # (Auto) 0.04 (0-0.5) K/uL Baso # (Auto) 0.01 (0-0.2) K/uL Immature Gran # (Auto) 0.01 (0.00-0.02) K/uL Sodium 142 (136-145) mmol/L Potassium 3.8 (3.5-5.1) mmol/L Chloride 111 H (98-107) mmol/L Carbon Dioxide 25 (21-32) mmol/L Anion Gap 5.0 (3-11) BUN 13 (7-18) mg/dl Creatinine 1.09 (0.6-1.2) mg/dl Est Cr Clr Drug Dosing 96.2 ml/min Est GFR ( Amer) 78.3 Est GFR (Non-Af Amer) 67.6 BUN/Creatinine Ratio 11.6 (10-20) Glucose 108 H (70-99) mg/dl Calcium 9.3 (8.5-10.1) mg/dl Total Bilirubin 0.3 (0.2-1) mg/dl AST 22 (15-37) U/L ALT 32 (12-78) U/L Alkaline Phosphatase 57 (45-117) U/L Total Protein 7.6 (6.4-8.2) gm/dl Albumin 3.7 (3.4-5.0) gm/dl Globulin 3.9 (2.5-4.0) gm/dl Albumin/Globulin Ratio 0.9 (0.9-2) TSH 2.120 (0.300-4.500) uIu/ml Urine Color Urine Appearance (Clear) Urine pH (4.5-7.5) Ur Specific [place] (1.000-1.030) Urine Protein (Negative) Urine Glucose (UA) (Negative) Urine Ketones (Negative) Urine Blood (Negative) Urine Nitrite (Negative) Urine Bilirubin (Negative) Urine Urobilinogen (Negative) Ur Leukocyte Esterase (Negative) Urine WBC (Auto) (0-5) /hpf Urine RBC (Auto) (0-4) /hpf U Hyaline Cast (Auto) (0-5) /lpf U Epithel Cells (Auto) (0-5) /lpf Urine Bacteria (Auto) (Negative) POC Ur Test (NEG) Salicylates < 1.7 L (2.8-20) mg/dl Urine Opiates Screen (Neg) Ur Methadone, Qual (Neg) Acetaminophen < 2 L (10-30) ug/ml Urine Barbiturates (Neg) Ur Phencyclidine (PCP) (Neg) U Amphetamin/Meth Scrn (Neg) MDMA (Ecstasy) Screen (Neg) U Benzodiazepines Scrn (Neg) Ur Cocaine Metabolite (Neg) U Marijuana (THC) Screen (Neg) Ethyl Alcohol mg/dL (0-3) mg/dl COVID-19 Eval Order SARS-CoV-2, RNA, NAAT (NEGATIVE) 08/20/20 08/20/20 08/20/20 Range/Units 11:30 12:00 12:00 WBC (4.8-10.8) K/uL RBC (4.2-5.4) M/uL Hgb (12.0-16.0) g/dL Hct (37-47) % MCV (80-100) fL MCH (25-34) pg MCHC (32-36) g/dL RDW Std Deviation (36.4-46.3) fL RDW Coeff of Merlin (11.5-14.5) % Plt Count (130-400) K/uL MPV (7.4-10.4) fL Immature Gran % (Auto) % Neut % (Auto) % Lymph % (Auto) % [place] % (Auto) % Eos % (Auto) % Baso % (Auto) % Neut # (Auto) (1.4-6.5) K/uL Lymph # (Auto) (1.2-3.4) K/uL [place] # (Auto) (0.11-0.59) K/uL Eos # (Auto) (0-0.5) K/uL Baso # (Auto) (0-0.2) K/uL Immature Gran # (Auto) (0.00-0.02) K/uL Sodium (136-145) mmol/L Potassium (3.5-5.1) mmol/L Chloride (98-107) mmol/L Carbon Dioxide (21-32) mmol/L Anion Gap (3-11) BUN (7-18) mg/dl Creatinine (0.6-1.2) mg/dl Est Cr Clr Drug Dosing ml/min Est GFR ( Amer) Est GFR (Non-Af Amer) BUN/Creatinine Ratio (10-20) Glucose (70-99) mg/dl Calcium (8.5-10.1) mg/dl Total Bilirubin (0.2-1) mg/dl AST (15-37) U/L ALT (12-78) U/L Alkaline Phosphatase (45-117) U/L Total Protein (6.4-8.2) gm/dl Albumin (3.4-5.0) gm/dl Globulin (2.5-4.0) gm/dl Albumin/Globulin Ratio (0.9-2) TSH (0.300-4.500) uIu/ml Urine Color Urine Appearance (Clear) Urine pH (4.5-7.5) Ur Specific [place] (1.000-1.030) Urine Protein (Negative) Urine Glucose (UA) (Negative) Urine Ketones (Negative) Urine Blood (Negative) Urine Nitrite (Negative) Urine Bilirubin (Negative) Urine Urobilinogen (Negative) Ur Leukocyte Esterase (Negative) Urine WBC (Auto) (0-5) /hpf Urine RBC (Auto) (0-4) /hpf U Hyaline Cast (Auto) (0-5) /lpf U Epithel Cells (Auto) (0-5) /lpf Urine Bacteria (Auto) (Negative) POC Ur Test (NEG) Salicylates (2.8-20) mg/dl Urine Opiates Screen (Neg) Ur Methadone, Qual (Neg) Acetaminophen (10-30) ug/ml Urine Barbiturates (Neg) Ur Phencyclidine (PCP) (Neg) U Amphetamin/Meth Scrn (Neg) MDMA (Ecstasy) Screen (Neg) U Benzodiazepines Scrn (Neg) Ur Cocaine Metabolite (Neg) U Marijuana (THC) Screen (Neg) Ethyl Alcohol mg/dL < 3.0 (0-3) mg/dl COVID-19 [facility]-2, RNA, NAAT NEGATIVE (NEGATIVE) Administered Medications Discontinued Medications Hydroxyzine HCl (Hydroxyzine Hcl 25 Mg Tab) 50 mg PO NOW STA Stop: 08/20/20 14:29 Last Admin: 08/20/20 14:35 Dose: 50 mg Documented by: [id number] Discharge Plan Visit Data Chief Complaint: Mental Health Evaluation Stated Complaint: MENTAL EVALUATION ED Provider: Phillpi Moyer Discharge Problem: Depression with suicidal ideation Patient Disposition: Admitted As Inpatient Discharge Instructions Interventions: ED Discharge Assessment Last Done: 08/20/20 16:07
[2020-08-20 11:10] LABS: Appearance Urine Clear (Clear); Bacteria Urine Automated Negative (Negative); Bilirubin Urine Negative (Negative); Blood Urine 3+ (Negative); Cast Urine Automated 0 /lpf (0-5); Color Urine Orange; Epithelial Cell Urine Auto 20-30 /lpf (0-5); Glucose Urine UA Negative (Negative); Ketones Urine Negative (Negative); Leukocyte Esterase Urine Negative (Negative); Nitrite Urine Negative (Negative); Protein Urine Negative (Negative); RBC Urine Automated 0-4 /hpf (0-4); Specific Gravity Urine 1.008 (1.000-1.030); Urobilinogen Urine Negative (Negative)
[2020-08-20 11:29] LABS: Amphetamines+Metham, Urine Neg (Neg); Barbiturates, Urine Neg (Neg); Benzodiazepine, Urine Neg (Neg); Cocaine, Urine Neg (Neg); MDMA (Ecstacy), Urine Neg (Neg); Methadone, Urine Neg (Neg); Opiate, Urine Neg (Neg); Phencyclidine, Urine Neg (Neg)
[2020-08-20 11:49] LABS: Basophils # (auto) 0.01 K/uL (0-0.2); Basophils % (auto) 0.2 %; Eosinophils # (auto) 0.04 K/uL (0-0.5); Eosinophils % (auto) 0.8 %; Hematocrit (blood only) 37.8 % (37-47); Hemoglobin 12.4 g/dL (12.0-16.0); Immature Granulocytes # (auto) 0.01 K/uL (0.00-0.02); Immature Granulocytes % (auto) 0.2 %; Lymphocytes # (auto) 1.53 K/uL (1.2-3.4); Lymphocytes % (auto) 31.4 %; Mean Corpuscular Hemoglobin 28.4 pg (25-34); Mean Corpuscular Hgb Conc 32.8 g/dL (32-36); Mean Corpuscular Volume 86.5 fL (80-100); Mean Platelet Volume 9.7 fL (7.4-10.4); Monocytes # (auto) 0.23 K/uL (0.11-0.59); Monocytes % (auto) 4.7 %; Neutrophils # (auto) 3.06 K/uL (1.4-6.5); Neutrophils % (auto) 62.7 %; Platelet Count 282 K/uL (130-400); RDW Coefficient of Variation 13.3 % (11.5-14.5); RDW Standard Deviation 42.5 fL (36.4-46.3); Red Blood Count 4.37 M/uL (4.2-5.4); White Blood Count 4.88 K/uL (4.8-10.8)
[2020-08-20 12:07] LABS: Albumin Level 3.7 gm/dl (3.4-5.0); BUN Creatinine Ratio 11.6 (10-20); Calcium 9.3 mg/dl (8.5-10.1); Creatinine Clr Calc Pharmacy 96.2 ml/min; Est GFR (African American) 78.3; Est GFR (Non-African American) 67.6; Potassium 3.8 mmol/L (3.5-5.1)
[2020-08-20 12:17] LABS: Albumin Globulin Ratio 0.9 (0.9-2); Bilirubin,Total 0.3 mg/dl (0.2-1); Globulin 3.9 gm/dl (2.5-4.0); Thyroid Stimulating Hormone 2.12 uIu/ml (0.300-4.500); Total Protein 7.6 gm/dl (6.4-8.2)
[2020-08-20 12:27] LABS: Acetaminophen < 2 ug/ml (10-30)
[2020-08-20 12:28] LABS: Salicylate < 1.7 mg/dl (2.8-20)
[2020-08-20] MEDS ORDERED: hydrOXYzine HCl 25 MG TAB PO STA (14:28)
[2020-08-20] MEDS ORDERED: MAGNESIUM HYDROXIDE SUSP 30 ML UDC PO PRN (14:48)
[2020-08-20] MEDS ORDERED: ALUMINUM/MAGNESIUM SUSP 30 ML UDC PO PRN (14:48)
[2020-08-20] MEDS ORDERED: BISMUTH SUBSALICYLATE LIQD 236 ML PO PRN (14:48)
[2020-08-20] MEDS ORDERED: hydrOXYzine HCl 25 MG TAB PO PRN (14:48)
[2020-08-20] MEDS ORDERED: SODIUM CHLORIDE 0.65% NA SOLN 45 ML (OCEAN) PRN (14:48)
[2020-08-20] MEDS ORDERED: ACETAMINOPHEN 325 MG TAB PO PRN (14:48)
[2020-08-21] MEDS: clonazePAM 1 MG TAB PO PRN (07:51)
[2020-08-21] MEDS ORDERED: ARIPiprazole 15 MG TAB PO SCH (09:00)
[2020-08-21] MEDS: CHOLECALCIFEROL 1,000 UNITS 25 MCG TAB PO SCH (09:10)
[2020-08-21] MEDS: MULTIVITAMIN TAB PO SCH (09:10)
[2020-08-21] MEDS ORDERED: risperiDONE 1 MG TABLET PO STA (10:34)
--- NOTE | 2020-08-21 12:10 | History & Physical ---
Date of Service August 21, 2020 Impression / Recommendations Impression This 30-year-old woman has a known diagnosis of bipolar disorder, first diagnosed when she was in her early 20s. She has a past history of depression and, currently, she seems to be convinced that, subsequent to the of her third child, approximately 5 months ago, she has developed " psychosis." (I tried to gently explain to her that psychosis typically resolves within the first 6 weeks following ; i.e. the period, and that usually we look for another explanation, such as exacerbation of a bipolar disorder, depressed phase, if the depression and/or psychosis persist beyond that. The patient seemed invested in the diagnosis of psychosis, but indicated understanding. Also, she does not resist the diagnosis of bipolar disorder. Case is somewhat complicated by the fact that the patient reports that she has a long history of poor response to a number of different medications, including lithium carbonate, several selective serotonin reuptake inhibitors, buspirone, and standing dose benzodiazepines. She does, however, use clonazepam 1 mg for panic episodes. These episodes are characterized by short-lived periods of time during which she experiences shortness of breath, palpitations, a clammy sensation, and feelings of terror and dread. We reviewed those psychiatric medications and other interventions that the patient has tried or considered. She has not had ECT, but has considered it and ask for details. In the past, she notes that she responded favorably to Lexapro in combination with bupropion, but that was without a mood stabilizer. She has not tried medication such as risperidone/Risperdal, olanzapine/Zyprexa, and quetiapine/Seroquel. She is also not had a trial of Depakote/divalproex sodium or risperidone. Today, we discussed the option of discontinuing aripiprazole within the context of her report that it has not been helping and, if anything, she got worse when the dose was increased. Accordingly, I recommended that we discontinue aripiprazole and begin treatment with risperidone, as tolerated in combination with Lexapro beginning at 10 mg a day and titrating as indicated. (The patient previously tolerated 20 mg of Lexapro well without any noted side effects. (1) Bipolar disorder with severe depression: 08/21/20 -[facility] and has been referred for various modalities of psychiatric treatment, including individual, group, recreational, and family interventions. We are anticipating several adjustments in her medication regimen. As noted above, the patient reports that her symptoms of depression did not seem to respond to aripiprazole 20 mg a day, and worsened when the dose was increased to 30 mg a day (the patient insists that it was increased to 50 mg a day, but this is not the case). Accordingly, with the patient's agreement, we will discontinue aripiprazole at this point and start the patient on risperidone and titrate as indicated and tolerated. Also, she reports a past history of a favorable response "for many years" to Lexapro, 20 mg a day, in combination with bupropion. The plan is to begin Lexapro and risperidone, and add bupropion as indicated and required. (She does note that with bupropion she has the side effect of "frequent nightmares," and if this is reinstituted it may be necessary to add prazosin to the medication regimen.) Present on Admission?: Yes (2) Auditory hallucinations: 08/21/20 -Patient reports the first time onset of auditory hallucinations approximately 2 or 3 days ago. These "voices" are typically derogatory in nature and come among other things, command her to commit suicide. The patient does have insight into the fact that these "voices" are not real, and she freely identifies them as hallucinations. She also notes that she is aware that hallucinations or symptoms of psychosis. However, she is also experiencing intensifying thoughts of suicide and the command hallucinations are extremely distressing to her because she fears that she may at some point act on them. Present on Admission?: Yes (3) At high risk for suicide: 08/21/20 -The patient reports intensifying thoughts of suicide, combined with command auditory hallucinations as referenced above. She notes that she does not currently have suicidal intent, but is very concerned that her depression is becoming progressively worse, her suicidal thoughts are becoming more intense, and she is quite distressed by the command hallucinations. -We will treat the auditory hallucinations with risperidone after discontinuing aripiprazole. The patient also is on suicide precautions and is closely monitored. She convincingly agrees to contract for her own safety on the unit, and says that she is not having any thoughts of harming herself here. Present on Admission?: Yes Inventory Assets Strengths: Happy and supportive marriage. Supportive mother and [id number]. Well educated. Sense of humor, even when depressed. Motivated to treatment and recovery. Needs: The patient is somewhat of a medication challenge. Many medications, would mention, are identified as poorly tolerated by the patient. She needs improvement in her depressive symptoms, resolution of the command auditory hallucinations, and freedom from intrusive suicidal thoughts. Risk Factors Assessment Major mental illness. Command hallucinations. Recently lost her job. 3 children under the age of 4. Male: No : Yes Do You Have Access To A Gun?: No Health Problems: No Mental Health Diagnoses: Yes Substance Use Disorders: No Previous Attempt: No Family History of Suicide: No Previous Psychiatric Hospitalization: Yes Hopelessness: No Smoker: No Protective Factors Assessment Tenriism Beliefs: Yes : Yes Responsible for Young Children: Yes Employed: No Stable Relationships: Yes Supportive Family: Yes Good Rapport with Provider: Yes Absence of Any Risk Factors Above: No Psychiatric History Identifying Data RONAK CHEN is a 30-year-old F who currently lives in [place] with her and 3 young children. Has a history of bipolar disorder and depression. The patient was admitted on 08/20/20 14:48 on a 201 voluntary agreement because of suicidality within the context of command auditory hallucinations. Chief Complaint " Did you ever here of psychosis? That is what I think I have." History of Present Illness The patient is a 30-year-old woman who has a known diagnosis of bipolar disorder, as well as a past history of depression. She gave to her youngest child approximately 5 months ago and, subsequent to the of the child, the patient has been experiencing progressive symptoms of depression that have included depressed mood, irritable mood, fatigue, difficulty concentrating, apathy, anergia, anhedonia, and anxious distress. Further, the patient has been experiencing suicidal thoughts and, beginning approximately 2 or 3 days ago the patient began to experience what she, herself, refers to as "auditory hallucinations." The patient notes that she hears these voices as if an unseen person is talking to her, but she says that she knows perfectly well that she is experiencing hallucinations and does not believe that the voices are coming from any real entity. Nevertheless, she finds the voices to be distressing because the content of the voices are derogatory and, in addition, tell her to "go ahead" and kill herself. The patient reports that she was diagnosed with depression when she was in high school. In her early 20s she had her first manic episode. She reports that when experiencing eulalia or hypomania she demonstrates increased energy, elated and expansive mood, decreased desire for sleep, and impulsive behaviorsparticularly related to spending. 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 (The patient is aware of that this termination, at least as described by the patient, would possibly be unlawful under the terms of the Americans with disabilities act, but she explains that she hopes in the future to find another job in academia and believes that if she attempts to fight her termination she will be unlikely to find another job in the future. As a result of her termination, the patient and her are having some financial difficulties. She reports that her is very supportive, and, recently, his parents (the patient's [id number] and [id number]) have come to stay with the family in order to help. She also enjoys the active support of her mother who lives nearby and [place], [place]. Patient explains that she has always had difficulty responding to psychiatric medications. However, she notes that for many years she did "quite well" on Lexapro 20 mg a day and bupropion (dose unspecified), but when retrying them recently during a psychiatric hospitalization at [facility] this year she felt that they were effective and she thought that perhaps Wellbutrin was causing her to have "nightmares." She has responded poorly to several selective serotonin reuptake inhibitors. She also notes that she could not tolerate buspirone, and had what she referred to as "a whole lot of side effects" from lithium. A recent change in her outpatient medications is an increase in her aripiprazole from 20 mg a day to 30 mg a day. The patient adamantly insists that the dose was increased from 20 mg a day to a dose of 50 mg a day, and she notes that she has the prescription bottle at home and it clearly reads "50 mg." I asked if she takes more than 1 tablet of aripiprazole per day, and she replied in the negative and said "no, they are 50 mg tablets." She seemed unwilling to accept that aripiprazole does not come in a 50 mg tablet, nor was she able to except my attempt to assure her that it seems unlikely that a provider would more than double her dose from 20 mg a day to 50 mg a day. In any event, the patient says that she feels that her symptoms have gotten worse since the dose of aripiprazole was increased. Past Psychiatric History Previous Psych History: As above, the patient had her first major depressive episode at the age of 16 (while in high school). Her diagnosis was changed to bipolar disorder when she experienced a manic episode in her early 20s. She indicates that she tends to have more depressive episodes than manic episodes, and that for a number of years her psychiatric condition was stable and in remission. She was given a diagnosis of depression following the of her first child, currently age 2. The current episode of depression appears to have been precipitated by the of her third child, approximately 2 months ago. Current Psychiatric Diagnosis: Bipolar, Anxiety, depression, panic attacks Outpatient Services: She is currently being followed by a therapist and a prescriber at [facility]. She indicates that she feels that she has a good relationship with these providers. Previous Psych Admissions: Patient reports that she has had 1 previous psychiatric hospitalization. That hospitalization occurred approximately a month ago and [facility]. She explains that she did not have a good experience at that facility, primarily because she found that there was a large number of very disturbed, behavioral dyscontrol patients on the unit to which she was assigned, and these individuals were intrusive and would sometimes wander into her room in the middle of the night, etc. Do You Have Access To A Gun?: No History of Previous Suicide Attempt: No Describe Attempts in the Past: Denies attempts Past Head Trauma/Neuro History History of Concussion/Seizure: No Allergies Allergy/AdvReac Type Severity Reaction Status Date / Time azithromycin Allergy Severe Rash Verified 08/20/20 12:15 loratadine Allergy Severe Rash Verified 08/20/20 12:15 latex Allergy Intermediate Rash Verified 08/20/20 12:15 lactose AdvReac Mild Gastrointestinal Unverified 08/20/20 16:27 Upset Home Medications Home Medications Medication Instructions Recorded Confirmed Type aripiprazole 30 mg PO DAILY 06/06/20 08/20/20 History clonazepam 1 mg PO UD PRN 06/06/20 08/20/20 History hydroxyzine HCl 50 mg PO TID PRN 08/18/20 08/20/20 History cholecalciferol (vitamin D3) 25 mcg PO DAILY 08/20/20 08/20/20 History [Vitamin D3] pediatric multivitamin no.29 1 tab PO DAILY 08/20/20 08/20/20 History [Gummies Girls' Multivitamins] Family History Family History of: Depression and Anxiety (Patient believes that her mother and her brother may suffer from anxiety.) Family Mental Health History Comment: The patient's father of a "genetic kidney disease" when the patient was 4 years old, and he was in his late 30s. She does not know the name of the genetic kidney disease, but thinks that it was not polycystic kidney disease. Alcohol History Hx of Alcohol Use Over the Past 12 Months: No AUDIT Total Score: 0 Smoking Use Have You Smoked or Used Tobacco Products in the Last 30 Days: No Smoking Status: Former smoker Substance History Hx of Prescription Med Misuse Over the Past 12 Months: No Hx of Over the Counter Med Misuse Over the Past 12 Months: No Hx of Inhalent Misuse Over the Past 12 Months: No Hx of Organic Substance Use Over the Past 12 Months: Yes (Prescribed Medical Marijuana) Hx of Illegal Substances/Street Drug Use Over Past 12 Months: No Problems as a Result of Past Substance Use: None Identified Personal History Living Arrangements: Apartment Living Arrangements Comments: Patient is currently living with her and her 3 children, ages 3, 2, and 5 months. Born In: [facility]. The patient says that she was raised in [place]. 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 However, she tells me that she does not remember her father.) Patient History Medical History Anxiety and depression taking Zoloft Bipolar 1 disorder GERD (gastroesophageal reflux disease) gestational Gestational hypertension H/O pre-eclampsia in prior , currently Hx of migraines Hx of varicella Nausea and vomiting after administration of anesthetic agent s/p epidural depression Surgical History H/O section x2, 01/2017 [facility] FTP, pre-eclampsia, 05/2018 [facility] repeat C/S H/O laparoscopy History of ovarian cystectomy History of tooth extraction Family History Father , age 39 Kidney disease Renal failure Mother Breast cancer Dyslipidemia Grandfather (Paternal) Parkinson disease Grandfather (Maternal) Alzheimer disease Brother Epilepsy Social History Smoking Status: Former smoker Tobacco Type: Cigarettes Second Hand Exposure: No; Hx Alcohol Use: No Hx Substance Use: No Preferred Language: Citizen [place] Communication Ability: Effective 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 Beliefs That Will Affect Care: Tenriism (Patient says that she is Yazidi, she has not established herself at a congregation locally, but says that that is because the family moved to [place] after the onset of the COVID-19 restrictions.) marital status: marital status details: Lowell Chen (41) [phone] Current Living Situation: Spouse and Family Current Living Situation Comment: lives with and children, 2 cats, does not change litter Feels Safe at Home: Yes Assistive Devices: None Review of Systems Review of Systems: All systems reviewed & are unremarkable except as noted in HPI & below The somatic history, physical examination, and review of systems completed by Dr. Phillip Moyer of the emergency department have been reviewed and are excepted for purposes of medical clearance to the behavioral health unit. At least 10 systems were reviewed with the patient as part of the psychiatric assessment. She reports untreated hypercholesterolemia, history of 3 sections, occasional migraine headaches, and she is status post tubal ligation (following the of her most recent child). Physical Exam Psychiatric: Orientation: alert, oriented x 3 and cooperative The patient is also oriented to situation and had Apperance: appropriately dressed, appropriately groomed and appeared stated age Eye Contact: + fair eye contact Motor Behavior: + psychomotor retardation Speech: normal rate/rhythm/volume of speech (Patient speech is slow and soft. However, she is articulate and speaks spontaneously.) Affect: + depressed affect, + anxious affect and + tearful affect Also, the patient at times seems somewhat irritable, but also appears to be struggling to suppress it, successfully. Mood: + depressed mood, + anxious mood and + irritable mood Thought Process: goal directed thought process, linear/logical thought process and clear/coherent thought process Thought Content: no delusions (There is no delusional material identified in the patient's thought content.) Suicidal Thoughts: + reports suicidal thoughts The patient reports persistent suicidal thoughts as well as command auditory hallucinations that tell her to kill her self. She convincingly assures us that she has no plan of acting on these thoughts or commands in the hospital, and agrees that she will let staff know should this change in any way. Homicidal Thoughts: denies homicidal thoughts Hallucinations: + auditory hallucinations (Patient reports that she hears voices that seem to be coming from "somewhere behind [her]." She notes that she is fully aware that these are not "real" voices and, instead, explains that she is fully aware that these are auditory hallucinations and possible signs of " psychosis.") Cognition: recent memory grossly intact, remote memory grossly intact and language grossly intact Estimated Intelligence: + above average estimated intelligence Insight: + fair insight Judgement: good judgement Vital Signs (Past 24 Hours): Last Vital Signs Temp 36.8 C 08/21/20 06:30 Pulse 106 H 08/21/20 06:31 Resp 18 08/21/20 06:30 BP 120/77 08/21/20 06:31 Pulse Ox 98 08/20/20 16:07 Results & Data ([facility]) Laboratory Results Laboratory Results - last 24 hr 08/20/20 08/20/20 08/20/20 11:30 11:30 11:30 WBC 4.88 RBC 4.37 Hgb 12.4 Hct 37.8 MCV 86.5 MCH 28.4 MCHC 32.8 RDW Std Deviation 42.5 RDW Coeff of Merlin 13.3 Plt Count 282 MPV 9.7 Immature Gran % (Auto) 0.2 Neut % (Auto) 62.7 Lymph % (Auto) 31.4 Sebastian % (Auto) 4.7 Eos % (Auto) 0.8 Baso % (Auto) 0.2 Neut # (Auto) 3.06 Lymph # (Auto) 1.53 Sebastian # (Auto) 0.23 Eos # (Auto) 0.04 Baso # (Auto) 0.01 Immature Gran # (Auto) 0.01 Sodium 142 Potassium 3.8 Chloride 111 H Carbon Dioxide 25 Anion Gap 5.0 BUN 13 Creatinine 1.09 Est Cr Clr Drug Dosing 96.2 Est GFR ( Amer) 78.3 Est GFR (Non-Af Amer) 67.6 BUN/Creatinine Ratio 11.6 Glucose 108 H Calcium 9.3 Total Bilirubin 0.3 AST 22 ALT 32 Alkaline Phosphatase 57 Total Protein 7.6 Albumin 3.7 Globulin 3.9 Albumin/Globulin Ratio 0.9 TSH 2.120 Salicylates < 1.7 L Acetaminophen < 2 L Ethyl Alcohol mg/dL COVID-19 Eval Order SARS-CoV-2, RNA, NAAT 08/20/20 08/20/20 08/20/20 11:30 12:00 12:00 WBC RBC Hgb Hct MCV MCH MCHC RDW Std Deviation RDW Coeff of Merlin Plt Count MPV Immature Gran % (Auto) Neut % (Auto) Lymph % (Auto) Sebastian % (Auto) Eos % (Auto) Baso % (Auto) Neut # (Auto) Lymph # (Auto) Sebastian # (Auto) Eos # (Auto) Baso # (Auto) Immature Gran # (Auto) Sodium Potassium Chloride Carbon Dioxide Anion Gap BUN Creatinine Est Cr Clr Drug Dosing Est GFR ( Amer) Est GFR (Non-Af Amer) BUN/Creatinine Ratio Glucose Calcium Total Bilirubin AST ALT Alkaline Phosphatase Total Protein Albumin Globulin Albumin/Globulin Ratio TSH Salicylates Acetaminophen Ethyl Alcohol mg/dL < 3.0 COVID[facility]19 [facility] SARS-[facility], RNA, NAAT NEGATIVE Current Inpatient Medications Current Inpatient Medications: Current Inpatient Medications Acetaminophen (Acetaminophen 325 Mg Tab) 650 mg PO Q4H PRN PRN Reason: Headache or Minor Fever Stop: 09/19/20 14:47 Al Hydrox/Mg Hydrox/Simethicone (Aluminum/Magnesium Susp 30 Ml Udc) 30 ml PO Q4H PRN PRN Reason: GI Upset Stop: 09/19/20 14:47 Bismuth Subsalicylate (Bismuth Subsalicylate Liqd 236 Ml) 15 ml PO PRN PRN PRN Reason: Loose Stool Stop: 09/19/20 14:47 Clonazepam (Clonazepam 1 Mg Tab) 1 mg PO DAILY PRN PRN Reason: Anxiety Stop: 09/19/20 16:52 Last Admin: 08/21/20 07:51 Dose: 1 mg Documented by: Escitalopram Oxalate (Escitalopram Oxalate 10 Mg Tab) 10 mg PO QAM PAULO Stop: 09/20/20 10:44 Hydroxyzine HCl (Hydroxyzine Hcl 25 Mg Tab) 50 mg PO HSZ PRN PRN Reason: Insomnia Stop: 09/19/20 14:47 Last Admin: 08/20/20 20:30 Dose: 50 mg Documented by: Hydroxyzine HCl (Hydroxyzine Hcl 25 Mg Tab) 25 mg PO Q4H PRN PRN Reason: Anxiety Stop: 09/19/20 14:47 Influenza Virus Vaccine Quadrival (Influenza Virus Quad Vaccine 0.5 Ml Syr) 0.5 ml IM .ONCE ONE Stop: 08/24/20 09:01 Magnesium Hydroxide (Magnesium Hydroxide Susp 30 Ml Udc) 30 ml PO DAILY PRN PRN Reason: Constipation Stop: 09/19/20 14:47 Multivitamins (Multivitamin Tab) 1 tab PO DAILY PAULO Stop: 09/20/20 08:59 Last Admin: 08/21/20 09:10 Dose: 1 tab Documented by: Risperidone (Risperidone 1 Mg Tablet) 1 mg PO BID PAULO Stop: 09/20/20 20:59 Sodium Chloride (Sodium Chloride 0.65% Na Soln 45 Ml (Tomah)) 1 - 2 sprays NA PRN PRN PRN Reason: Nasal Dryness/Congestion Stop: 09/19/20 14:47 Vitamin D (Cholecalciferol 1,000 Units 25 Mcg Tab) 1,000 units PO DAILY PAULO Stop: 09/20/20 08:59 Last Admin: 08/21/20 09:10 Dose: 1,000 units Documented by:
[2020-08-21] MEDS: ESCITALOPRAM OXALATE 10 MG TAB PO SCH (13:00)
[2020-08-21] MEDS: hydrOXYzine HCl 25 MG TAB PO PRN (16:25)
[2020-08-21] MEDS: risperiDONE 1 MG TABLET PO SCH (22:20)
[2020-08-22] MEDS: MULTIVITAMIN TAB PO SCH (09:31)
[2020-08-22] MEDS: ESCITALOPRAM OXALATE 10 MG TAB PO SCH (09:31)
[2020-08-22] MEDS: CHOLECALCIFEROL 1,000 UNITS 25 MCG TAB PO SCH (09:31)
[2020-08-22] MEDS: risperiDONE 1 MG TABLET PO SCH (09:31)
[2020-08-22 09:43] LABS: Glucose Fasting 93 mg/dl (70-99)
[2020-08-22 10:26] LABS: Chol HDL Ratio 7; Cholesterol 254 mg/dl (0-200); HDL Cholesterol 36 mg/dl; LDL Cholesterol Calculated 153 mg/dl; Triglycerides 326 mg/dl (0-150); VLDL Cholesterol 65 mg/dl
[2020-08-22] MEDS: clonazePAM 1 MG TAB PO PRN (11:42)
--- NOTE | 2020-08-22 15:31 | Psychiatric Progress Note ---
Date of Service August 22, 2020 Impression / Recommendations Impression This 30-year-old woman has a known diagnosis of bipolar disorder, first diagnosed when she was in her early 20s. She has a past history of depression and, currently, she seems to be convinced that, subsequent to the of her third child, approximately 5 months ago, she has developed " psychosis." (I tried to gently explain to her that psychosis typically resolves within the first 6 weeks following ; i.e. the period, and that usually we look for another explanation, such as exacerbation of a bipolar disorder, depressed phase, if the depression and/or psychosis persist beyond that. The patient seemed invested in the diagnosis of psychosis, but indicated understanding. Also, she does not resist the diagnosis of bipolar disorder. Case is somewhat complicated by the fact that the patient reports that she has a long history of poor response to a number of different medications, including lithium carbonate, several selective serotonin reuptake inhibitors, buspirone, and standing dose benzodiazepines. She does, however, use clonazepam 1 mg for panic episodes. These episodes are characterized by short-lived periods of time during which she experiences shortness of breath, palpitations, a clammy sensation, and feelings of terror and dread. We reviewed those psychiatric medications and other interventions that the patient has tried or considered. She has not had ECT, but has considered it and ask for details. In the past, she notes that she responded favorably to Lexapro in combination with bupropion, but that was without a mood stabilizer. She has not tried medication such as risperidone/Risperdal, olanzapine/Zyprexa, and quetiapine/Seroquel. She is also not had a trial of Depakote/divalproex sodium or risperidone. Today, we discussed the option of discontinuing aripiprazole within the context of her report that it has not been helping and, if anything, she got worse when the dose was increased. Accordingly, I recommended that we discontinue aripiprazole and begin treatment with risperidone, as tolerated in combination with Lexapro beginning at 10 mg a day and titrating as indicated. (The patient previously tolerated 20 mg of Lexapro well without any noted side effects. (1) Bipolar disorder with severe depression: 08/21/20 -The patient has been admitted to the [facility] behavioral health unit and has been referred for various modalities of psychiatric treatment, including individual, group, recreational, and family interventions. We are anticipating several adju stments in her medication regimen. As noted above, the patient reports that her symptoms of depression did not seem to respond to aripiprazole 20 mg a day, and worsened when the dose was increased to 30 mg a day (the patient insists that it was increased to 50 mg a day, but this is not the case). Accordingly, with the patient's agreement, we will discontinue aripiprazole at this point and start the patient on risperidone and titrate as indicated and tolerated. Also, she reports a past history of a favorable response "for many years" to Lexapro, 20 mg a day, in combination with bupropion. The plan is to begin Lexapro and risperidone, and add bupropion as indicated and required. (She does note that with bupropion she has the side effect of "frequent nightmares," and if this is reinstituted it may be necessary to add prazosin to the medication regimen.) 08/22 - Patient's diagnosis of bipolar disorder will be further assessed since she does not have a significant hypomanic or manic episode in the past. - The recent episode of patient's depression was triggered right after the delivery of her third baby about 5 months ago, which is contradicting from her first statement in initial evaluation yesterday. - Escitalopram 10 mg will be titrated up further tomorrow evening because that she cannot tolerate escitalopram in the morning due to fatigue. (2) Auditory hallucinations: 08/21/20 -Patient reports the first time onset of auditory hallucinations approximately 2 or 3 days ago. These "voices" are typically derogatory in nature and come among other things, command her to commit suicide. The patient does have insight into the fact that these "voices" are not real, and she freely identifies them as hallucinations. She also notes that she is aware that hallucinations or symptoms of psychosis. However, she is also experiencing intensifying thoughts of suicide and the command hallucinations are extremely distressing to her becau se she fears that she may at some point act on them. 08/22 -Patient states that her auditory hallucinations have been getting better since she started risperidone and risperidone will be titrated to 2 mg this evening and if she tolerates them without side effects, then 2 mg twice daily will be scheduled. (3) At high risk for suicide: 08/21/20 -The patient reports intensifying thoughts of suicide, combined with command auditory hallucinations as referenced above. She notes that she does not currently have suicidal intent, but is very concerned that her depression is becoming progressively worse, her suicidal thoughts are becoming more intense, and she is quite distressed by the command hallucinations. -We will treat the auditory hallucinations with risperidone after discontinuing aripiprazole. The patient also is on suicide precautions and is closely monitored. She convincingly agrees to contract for her own safety on the unit, and says that she is not having any thoughts of harming herself here. Inventory Assets Strengths: Happy and supportive marriage. Supportive mother and [id number]. Well educated. Sense of humor, even when depressed. Motivated to treatment and recovery. Needs: The patient is somewhat of a medication challenge. Many medications, would mention, are identified as poorly tolerated by the patient. She needs improvement in her depressive symptoms, resolution of the command auditory pau lucinations, and freedom from intrusive suicidal thoughts. Risk Factors Assessment Male: No : Yes Do You Have Access To A Gun?: No Health Problems: No Mental Health Diagnoses: Yes Substance Use Disorders: No Previous Attempt: No Family History of Suicide: No Previous Psychiatric Hospitalization: Yes Hopelessness: No Smoker: No Protective Factors Assessment Mu-Ism Beliefs: Yes : Yes Responsible for Young Children: Yes Employed: No Stable Relationships: Yes Supportive Family: Yes Good Rapport with Provider: Yes Absence of Any Risk Factors Above: No Interval History Chief Complaint "[We tried everything to improve our living situations and my will lose his job if we don't live in the dorm]". Review of Systems Notes Constitutional: denied cardiovascular: denied Respiratory: denied GI: denied Neurologic: denied Psychiatric: denies symptoms other than stated above Remainder of 10 body systems also reviewed and denied other than noted above. Sleep Information Total Hours of Sleep: 7.25 Meal Information Percent Meal Consumed - Breakfast: 80 Percent Meal Consumed - Lunch: 80 Percent Meal Consumed - Dinner: 100 Subjective Subjective Patient was seen & assessed and interval progress reviewed with nursing and social work. Staff reports that she has not participated in group activities regularly and has not interacted with others. Patient was seen today to assess progress since admission. Patient states that she has had depression twice in the past and this episode started right after she delivered her daughter about 5 months ago. 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 She has been feeling sad and anxious and she experienced physical symptoms of anxiety, including palpitations, chest tightness, diaphoresis, and hyperventilation, when she woke up in the morning. She even started to hear commanding voices which says she does not deserve to live a couple days ago and she went to ED because she did not feel safe. She states that the voices are not real and they have been happening less frequently since the admission. She feels risperidone has been helping her symptoms and denies any side effects of risperidone so far. She is willing to increase risperidone gradually. She also started escitalopram 10 mg and she wants to take them in the evening because she feels too tired. She also mentions that her living situations have been miserable for her family because living in the dorm with undergrad students is not ideal for her 3 kids. Her asked to a Family housing but [facility] declined that. She feels hopeless and nothing can help her family. She talked with her last night over the phone and she heard that her kids have been doing okay. Sleep and appetite have been okay. Physical Exam Psychiatric Orientation: alert and oriented x 3 Apperance: appropriately dressed and appropriately groomed Eye Contact: good eye contact Motor Behavior: steady gait and station and no abnormal motor movements Speech: normal rate/rhythm/volume of speech Affect: + depressed affect, + tearful affect, + blunted affect and mood congruent with affect Mood: + depressed mood and + anxious mood Thought Process: goal directed thought process, linear/logical thought process and clear/coherent thought process Thought Content: reality based without delusions, + hopelessness and + loneliness; no delusions Suicidal Thoughts: denies suicidal plan and denies suicidal intent Homicidal Thoughts: denies homicidal thoughts Hallucinations: + auditory hallucinations; no visual hallucinations Cognition: recent memory grossly intact, remote memory grossly intact, attention grossly intact and language grossly intact Estimated Intelligence: average estimated intelligence Insight: + fair insight Judgement: + fair judgement Vital Signs (Past 24 Hours) Last Vital Signs Temp 36.8 C 08/22/20 06:46 Pulse 90 08/22/20 06:47 Resp 16 08/22/20 06:46 BP 120/82 08/22/20 06:47 Pulse Ox 98 08/20/20 16:07 Results & Data ([facility]) Laboratory Results Laboratory Results - last 24 hr 08/22/20 09:05 Fasting Glucose 93 Triglycerides 326 H Cholesterol 254 H LDL Cholesterol, Calc 153 VLDL Cholesterol, Calc 65 HDL Cholesterol 36 Cholesterol/HDL Ratio 7 Current Inpatient Medications Current Inpatient Medications: Current Inpatient Medications Acetaminophen (Acetaminophen 325 Mg Tab) 650 mg PO Q4H PRN PRN Reason: Headache or Minor Fever Stop: 09/19/20 14:47 Al Hydrox/Mg Hydrox/Simethicone (Aluminum/Magnesium Susp 30 Ml Udc) 30 ml PO Q4H PRN PRN Reason: GI Upset Stop: 09/19/20 14:47 Bismuth Subsalicylate (Bismuth Subsalicylate Liqd 236 Ml) 15 ml PO PRN PRN PRN Reason: Loose Stool Stop: 09/19/20 14:47 Clonazepam (Clonazepam 1 Mg Tab) 1 mg PO DAILY PRN PRN Reason: Anxiety Stop: 09/19/20 16:52 Last Admin: 08/22/20 11:42 Dose: 1 mg Documented by: Escitalopram Oxalate (Escitalopram Oxalate 10 Mg Tab) 10 mg PO QAM PAULO Stop: 09/20/20 10:44 Last Admin: 08/22/20 09:31 Dose: 10 mg Documented by: Hydroxyzine HCl (Hydroxyzine Hcl 25 Mg Tab) 50 mg PO HSZ PRN PRN Reason: Insomnia Stop: 09/19/20 14:47 Last Admin: 08/20/20 20:30 Dose: 50 mg Documented by: Hydroxyzine HCl (Hydroxyzine Hcl 25 Mg Tab) 25 mg PO Q4H PRN PRN Reason: Anxiety Stop: 09/19/20 14:47 Last Admin: 08/21/20 16:25 Dose: 25 mg Documented by: Influenza Virus Vaccine Quadrival (Influenza Virus Quad Vaccine 0.5 Ml Syr) 0.5 ml IM .ONCE ONE Stop: 08/24/20 09:01 Magnesium Hydroxide (Magnesium Hydroxide Susp 30 Ml Udc) 30 ml PO DAILY PRN PRN Reason: Constipation Stop: 09/19/20 14:47 Multivitamins (Multivitamin Tab) 1 tab PO DAILY PAULO Stop: 11/08/20 08:59 Last Admin: 08/22/20 09:31 Dose: 1 tab Documented by: Risperidone (Risperidone 1 Mg Tablet) 1 mg PO BID PAULO Stop: 09/20/20 20:59 Last Admin: 08/22/20 09:31 Dose: 1 mg Documented by: Sodium Chloride (Sodium Chloride 0.65% Na Soln 45 Ml ([place])) 1 - 2 sprays NA PRN PRN PRN Reason: Nasal Dryness/Congestion Stop: 09/19/20 14:47 Vitamin D (Cholecalciferol 1,000 Units 25 Mcg Tab) 1,000 units PO DAILY PAULO Stop: 09/20/20 08:59 Last Admin: 08/22/20 09:31 Dose: 1,000 units Documented by: Mental Health & Subst Abuse Tx Psychiatrist Date of Appointment with Psychiatrist: 08/27/20 Time of Appointment with Psychiatrist: 9:45? Therapist Name of Therapist: none Post Discharge Appointments Primary Care Physician Name Of Family Doctor: none
[2020-08-22] MEDS: hydrOXYzine HCl 25 MG TAB PO PRN ×2 (16:04→20:25)
[2020-08-22] MEDS ORDERED: risperiDONE 2 MG TABLET PO SCH (22:00)
[2020-08-23] MEDS: hydrOXYzine HCl 25 MG TAB PO PRN ×2 (08:00→13:50)
[2020-08-23] MEDS ORDERED: risperiDONE 1 MG TABLET PO SCH (09:00)
[2020-08-23] MEDS: CHOLECALCIFEROL 1,000 UNITS 25 MCG TAB PO SCH (09:21)
[2020-08-23] MEDS: MULTIVITAMIN TAB PO SCH (09:21)
--- NOTE | 2020-08-23 10:35 | Psychiatric Progress Note ---
Date of Service August 23, 2020 Impression / Recommendations Impression This 30-year-old woman has a known diagnosis of bipolar disorder, first diagnosed when she was in her early 20s. She has a past history of depression and, currently, she seems to be convinced that, subsequent to the of her third child, approximately 5 months ago, she has developed " psychosis." (I tried to gently explain to her that psychosis typically resolves within the first 6 weeks following ; i.e. the period, and that usually we look for another explanation, such as exacerbation of a bipolar disorder, depressed phase, if the depression and/or psychosis persist beyond that. The patient seemed invested in the diagnosis of psychosis, but indicated understanding. Also, she does not resist the diagnosis of bipolar disorder. Case is somewhat complicated by the fact that the patient reports that she has a long history of poor response to a number of different medications, including lithium carbonate, several selective serotonin reuptake inhibitors, buspirone, and standing dose benzodiazepines. She does, however, use clonazepam 1 mg for panic episodes. These episodes are characterized by short-lived periods of time during which she experiences shortness of breath, palpitations, a clammy sensation, and feelings of terror and dread. We reviewed those psychiatric medications and other interventions that the patient has tried or considered. She has not had ECT, but has considered it and ask for details. In the past, she notes that she responded favorably to Lexapro in combination with bupropion, but that was without a mood stabilizer. She has not tried medication such as risperidone/Risperdal, olanzapine/Zyprexa, and quetiapine/Seroquel. She is also not had a trial of Depakote/divalproex sodium or risperidone. Today, we discussed the option of discontinuing aripiprazole within the context of her report that it has not been helping and, if anything, she got worse when the dose was increased. Accordingly, I recommended that we discontinue aripiprazole and begin treatment with risperidone, as tolerated in combination with Lexapro beginning at 10 mg a day and titrating as indicated. (The patient previously tolerated 20 mg of Lexapro well without any noted side effects. (1) Bipolar disorder with severe depression: 08/21/20 -The patient has been [place] [facility] [place] [place] [facility] and has been referred for various modalities of psychiatric treatment, including individual, group, recreational, and family interventions. We are anticipating several adju stments in her medication regimen. As noted above, the patient reports that her symptoms of depression did not seem to respond to aripiprazole 20 mg a day, and worsened when the dose was increased to 30 mg a day (the patient insists that it was increased to 50 mg a day, but this is not the case). Accordingly, with the patient's agreement, we will discontinue aripiprazole at this point and start the patient on risperidone and titrate as indicated and tolerated. Also, she reports a past history of a favorable response "for many years" to Lexapro, 20 mg a day, in combination with bupropion. The plan is to begin Lexapro and risperidone, and add bupropion as indicated and required. (She does note that with bupropion she has the side effect of "frequent nightmares," and if this is reinstituted it may be necessary to add prazosin to the medication regimen.) 08/22 - Patient's diagnosis of bipolar disorder will be further assessed since she does not have a significant hypomanic or manic episode in the past. - The recent episode of patient's depression was triggered right after the delivery of her third baby about 5 months ago, which is contradicting from her first statement in initial evaluation yesterday. - Escitalopram 10 mg will be titrated up further tomorrow evening because that she cannot tolerate escitalopram in the morning due to fatigue. 08/23 - Patient states that patient's depressive mood has been less noticeable because of increased anxious feeling. - Patient has been experiencing anxious feeling since the admission and it has been addressed with as needed use of hydroxyzine 25 mg with relief. - Escitalopram will be titrated to 20 mg this evening since patient used to be on 20 mg for 7 years without any side effects and patient agrees with this. (2) Auditory hallucinations: 08/21/20 -Patient reports the first time onset of auditory hallucinations approximately 2 or 3 days ago. These "voices" are typically derogatory in nature and come among other things, command her to commit suicide. The patient does have insight into the fact that these "voices" are not real, and she freely identifies them as hallucinations. She also notes that she is aware that hallucinations or symptoms of psychosis. However, she is also experiencing intensifying thoughts of suicide and the command hallucinations are extremely distressing to her because she fears that she may at some point act on them. 08/22 -Patient states that her auditory hallucinations have been getting better since she started risperidone and risperidone will be titrated to 2 mg this evening and if she tolerates them without side effects, then 2 mg twice daily will be scheduled. 08/23 -Patient denies auditory hallucinations. Patient has been tolerating risperidone 3 mg a day without significant side effects except daytime fatigue and drowsiness. Risperidone 3 mg will be tried before bedtime from tomorrow evening. Further titration of risperidone will be held until escitalopram is maximized first. (3) At high risk for suicide: 08/21/20 -The patient reports intensifying thoughts of suicide, combined with command auditory hallucinations as referenced above. She notes that she does not currently have suicidal intent, but is very concerned that her depression is becoming progressively worse, her suicidal thoughts are becoming more intense, and she is quite distressed by the command hallucinations. -We will treat the auditory hallucinations with risperidone after discontinuing aripiprazole. The patient also is on suicide precautions and is closely monitored. She convincingly agrees to contract for her own safety on the unit, and says that she is not having any thoughts of harming herself here. Inventory Assets Strengths: Happy and supportive marriage. Supportive mother and [id number]. Well educated. Sense of humor, even when depressed. Motivated to treatment and recovery. Needs: The patient is somewhat of a medication challenge. Many medications, would mention, are identified as poorly tolerated by the patient. She needs improvement in her depressive symptoms, resolution of the command auditory hallucinations, and freedom from intrusive suicidal thoughts. Risk Factors Assessment Male: No : Yes Do You Have Access To A Gun?: No Health Problems: No Mental Health Diagnoses: Yes Substance Use Disorders: No Previous Attempt: No Family History of Suicide: No Previous Psychiatric Hospitalization: Yes Hopelessness: No Smoker: No Protective Factors Assessment Denominational Beliefs: Yes : Yes Responsible for Young Children: Yes Employed: No Stable Relationships: Yes Supportive Family: Yes Good Rapport with Provider: Yes Absence of Any Risk Factors Above: No Interval History Chief Complaint "[I feel too tired]". Review of Systems Notes Constitutional: denied cardiovascular: denied Respiratory: denied GI: denied Neurologic: denied Psychiatric: denies symptoms other than stated above Remainder of 10 body systems also reviewed and denied other than noted above. Sleep Information Total Hours of Sleep: 8 Meal Information Percent Meal Consumed - Breakfast: 75 Percent Meal Consumed - Lunch: 80 Percent Meal Consumed - Dinner: 100 Subjective Subjective Patient was seen & assessed and interval progress reviewed with nursing and social work. Staff reports that she has participated in group activities and unit programming. Has been utilizing hydroxyzine almost every 4 hours for irritability and the last night no irritability noted. She denied auditory hallucinations yesterday. She rated her mood 07/23 yesterday and described it "understood. "Patient was seen today to assess progress since admission. Patient reports that she feels too tired after taking morning dose of risperidone 1 mg. She states that she slept really well last night after taking risperidone 2 mg but she cannot function throughout the days with the morning dose of risperidone. However she still wants to continue risperidone 3 mg before bedtime. Denies other side effects of risperidone. She also reports that hydroxyzine 25 mg has been helping her anxiety significantly and wants to continue hydroxyzine after being discharged. She denies auditory hallucinations. She states that her mood has been controlled well since being admitted but anxious feeling, especially about her kids, has been affecting her significantly. She also agrees with the further titration of citalopram up to 20 mg today because she was on escitalopram 20 mg for 7 years before she was about 15 months ago. Appetite has been good. Denies SI. Physical Exam Psychiatric Orientation: alert, oriented x 3, cooperative and + guarded superficially Apperance: appropriately dressed, appropriately groomed and appeared stated age Eye Contact: good eye contact Motor Behavior: steady gait and station and no abnormal motor movements; n tremor Speech: normal rate/rhythm/volume of speech Affect: + depressed affect, + anxious affect, + blunted affect and mood congruent with affect Mood: + depressed mood and + anxious mood Thought Process: goal directed thought process, linear/logical thought process, clear/coherent thought process and thought association intact Thought Content: reality based without delusions and + loneliness; no cognitive distortions Suicidal Thoughts: denies suicidal thoughts and denies suicidal intent Homicidal Thoughts: denies homicidal thoughts Hallucinations: no auditory hallucinations and no visual hallucinations Cognition: recent memory grossly intact, remote memory grossly intact, attention grossly intact and language grossly intact Estimated Intelligence: average estimated intelligence Insight: + fair insight Judgement: + fair judgement Vital Signs (Past 24 Hours) Last Vital Signs Temp 36.7 C 08/23/20 06:43 Pulse 99 H 08/23/20 06:44 Resp 16 08/23/20 06:43 BP 132/86 08/23/20 06:44 Pulse Ox 98 08/20/20 16:07 Results & Data ([facility]) Current Inpatient Medications Current Inpatient Medications: Current Inpatient Medications Acetaminophen (Acetaminophen 325 Mg Tab) 650 mg PO Q4H PRN PRN Reason: Headache or Minor Fever Stop: 09/19/20 14:47 Al Hydrox/Mg Hydrox/Simethicone (Aluminum/Magnesium Susp 30 Ml Udc) 30 ml PO Q4H PRN PRN Reason: GI Upset Stop: 09/19/20 14:47 Bismuth Subsalicylate (Bismuth Subsalicylate Liqd 236 Ml) 15 ml PO PRN PRN PRN Reason: Loose Stool Stop: 09/19/20 14:47 Clonazepam (Clonazepam 1 Mg Tab) 1 mg PO DAILY PRN PRN Reason: Anxiety Stop: 09/19/20 16:52 Last Admin: 08/22/20 11:42 Dose: 1 mg Documented by: Escitalopram Oxalate (Escitalopram Oxalate 10 Mg Tab) 15 mg PO HS PAULO Stop: 09/22/20 21:59 Hydroxyzine HCl (Hydroxyzine Hcl 25 Mg Tab) 50 mg PO HSZ PRN PRN Reason: Insomnia Stop: 09/19/20 14:47 Last Admin: 08/20/20 20:30 Dose: 50 mg Documented by: Hydroxyzine HCl (Hydroxyzine Hcl 25 Mg Tab) 25 mg PO Q4H PRN PRN Reason: Anxiety Stop: 09/19/20 14:47 Last Admin: 08/23/20 08:00 Dose: 25 mg Documented by: Influenza Virus Vaccine Quadrival (Influenza Virus Quad Vaccine 0.5 Ml Syr) 0.5 ml IM .ONCE ONE Stop: 08/24/20 09:01 Magnesium Hydroxide (Magnesium Hydroxide Susp 30 Ml Udc) 30 ml PO DAILY PRN PRN Reason: Constipation Stop: 09/19/20 14:47 Multivitamins (Multivitamin Tab) 1 tab PO DAILY PAULO Stop: 09/20/20 08:59 Last Admin: 08/23/20 09:21 Dose: 1 tab Documented by: Risperidone (Risperidone 1 Mg Tablet) 1 mg PO QAM PAULO Stop: 09/22/20 08:59 Last Admin: 08/23/20 09:21 Dose: 1 mg Documented by: Risperidone (Risperidone 2 Mg Tablet) 2 mg PO HS APULO Stop: 09/21/20 21:59 Last Admin: 08/22/20 20:24 Dose: 2 mg Documented by: Sodium Chloride (Sodium Chloride 0.65% Na Soln 45 Ml ([place])) 1 - 2 sprays NA PRN PRN PRN Reason: Nasal Dryness/Congestion Stop: 09/19/20 14:47 Vitamin D (Cholecalciferol 1,000 Units 25 Mcg Tab) 1,000 units PO DAILY PAULO Stop: 09/20/20 08:59 Last Admin: 08/23/20 09:21 Dose: 1,000 units Documented by: Mental Health & Subst Abuse Tx Psychiatrist Date of Appointment with Psychiatrist: 08/27/20 Time of Appointment with Psychiatrist: 9:45? Therapist Name of Therapist: none Post Discharge Appointments Primary Care Physician Name Of Family Doctor: none
[2020-08-23] MEDS: ESCITALOPRAM OXALATE 20 MG TAB PO SCH (21:11)
[2020-08-23] MEDS ORDERED: ESCITALOPRAM OXALATE 10 MG TAB PO SCH ×2 (22:00)
[2020-08-23] MEDS ORDERED: risperiDONE 2 MG TABLET PO ONE (22:00)
--- NOTE | 2020-08-24 08:24 | Psychiatric Progress Note ---
Date of Service August 24, 2020 Impression / Recommendations Impression This 30-year-old woman has a known diagnosis of bipolar disorder, first diagnosed when she was in her early 20s, with a history of mood episodes. Her case is complicated by a long history of poor response to a number of different medications, including lithium, several SSRIs, buspirone, and benzodiazepines. She has not had ECT, but has considered it, although she is hoping that acute interventions here will be sufficient for her to return to outpatient treatment. On admission, aripiprazole was changed to risperidone, and escitalopram was started to target mood and anxiety (she previously ramesh ated 20 mg of Lexapro well without any noted side effects). Command auditory hallucinations and suicidality have improved, but mood remains depressed and anxiety exacerbated. We are making referrals to increase her outpatient services (PCP and therapist), and she had a family meeting with her yesterday. Inpatient treatment remains medically necessary due to the severity of symptoms and risk for suicide if discharged prematurely. (1) At high risk for suicide: 08/21/20 -The patient reports intensifying thoughts of suicide, combined with command auditory hallucinations as referenced above. She notes that she does not currently have suicidal intent, but is very concerned that her depression is becoming progressively worse, her suicidal thoughts are becoming more intense, and she is quite distressed by the command hallucinations. -We will treat the auditory hallucinations with risperidone after discontinuing aripiprazole. The patient also is on suicide precautions and is closely monitored. She convincingly agrees to contract for her own safety on the unit, and says that she is not having any thoughts of harming herself here. 08/24 -auditory hallucinations have responded to risperidone and resolved. (2) Bipolar disorder with severe depression: 08/21/20 -The patient has been admitted to the [facility] behavioral health unit and has been referred for various modalities of psychiatric treatment, including individual, group, recreational, and family interventions. We are anticipating several adjustments in her medication regimen. As noted above, the patient reports that her symptoms of depression did not seem to respond to aripiprazole 20 mg a day, and worsened when the dose was increased to 30 mg a day (the patient insists that it was increased to 50 mg a day, but this is not the case). Accordingly, with the patient's agreement, we will discontinue aripiprazole at this point and start the patient on risperidone and titrate as indicated and tolerated. Also, she reports a past history of a favorable response "for many years" to Lexapro, 20 mg a day, in combination with bupropion. The plan is to begin Lexapro and risperidone, and add bupropion as indicated and required. (She does note that with bupropion she has the side effect of "frequent nightmares," and if this is reinstituted it may be necessary to add prazosin to the medication regimen.) 08/22 - Patient's diagnosis of bipolar disorder will be further assessed since she does not have a significant hypomanic or manic episode in the past. - The recent episode of patient's depression was triggered right after the delivery of her third baby about 5 months ago, which is contradicting from her first statement in initial evaluation yesterday. - Escitalopram 10 mg will be titrated up further tomorrow evening because that she cannot tolerate escitalopram in the morning due to fatigue. 08/23 - Patient states that patient's depressive mood has been less noticeable because of increased anxious feeling. - Patient has been experiencing anxious feeling since the admission and it has been addressed with as needed use of hydroxyzine 25 mg with relief. - Escitalopram will be titrated to 20 mg this evening since patient used to be on 20 mg for 7 years without any side effects and patient agrees with this. 08/24 - Continue escitalopram 20 mg and risperidone 3 mg at bedtime. - Again reviewed the option of ECT, including the facilities where it is offered, and offered to make a referral if the patient would like to pursue it. She would like to work toward discharge and outpatient treatment at this time, with ECT as a future option if treatment is ineffective/insufficient for symptom control. - Patient has been referred to Marilyn Garcia LCSW for therapy. (3) Auditory hallucinations: 08/21/20 -Patient reports the first time onset of auditory hallucinations approximately 2 or 3 days ago. These "voices" are typically derogatory in nature and come among other things, command her to commit suicide. The patient does have insight into the fact that these "voices" are not real, and she freely identifies them as hallucinations. She also notes that she is aware that hallucinations or symptoms of psychosis. However, she is also experiencing intensifying thoughts of suicide and the command hallucinations are extremely distressing to her because she fears that she may at some point act on them. 08/22 -Patient states that her auditory hallucinations have been getting better since she started risperidone and risperidone will be titrated to 2 mg this evening and if she tolerates them without side effects, then 2 mg twice daily will be scheduled. 08/23 -Patient denies auditory hallucinations. Patient has been tolerating risperidone 3 mg a day without significant side effects except daytime fatigue and drowsiness. Risperidone 3 mg will be tried before bedtime from tomorrow evening. Further titration of risperidone will be held until escitalopram is maximized first. 08/24 -Continue risperidone. Fasting labs for monitoring on an atypical antipsychotic from 08/22/2020 were reviewed; triglycerides 326, cholesterol 254, remainder of FLP normal; glucose 93. Due to obesity and hyperlipidemia, referral made for a PCP at [facility], appointment with Dr. Bel Shelton 09/10/2020. Inventory Assets Strengths: Happy and supportive marriage. Supportive mother and [id number]. Well educated. Sense of humor, even when depressed. Motivated to treatment and recovery. Needs: The patient is somewhat of a medication challenge. Many medications, would mention, are identified as poorly tolerated by the patient. She needs improvement in her depressive symptoms, resolution of the command auditory hallucinations, and freedom from intrusive suicidal thoughts. Risk Factors Assessment Male: No : Yes Do You Have Access To A Gun?: No Health Problems: No Mental Health Diagnoses: Yes Substance Use Disorders: No Previous Attempt: No Family History of Suicide: No Previous Psychiatric Hospitalization: Yes Hopelessness: No Smoker: No Protective Factors Assessment [employer] Beliefs: Yes : Yes Responsible for Young Children: Yes Employed: No Stable Relationships: Yes Supportive Family: Yes Good Rapport with Provider: Yes Absence of Any Risk Factors Above: No Interval History Identifying Information RONAK SMYHT is a 30-year-old F who currently lives in [place] with her and 3 young children, has a history of bipolar disorder and depression, and was admitted voluntarily on 08/20/20 14:48 because of suicidality within the context of command auditory hallucinations. Chief Complaint "I feel like my anxiety's the biggest issue". Review of Systems Sleep Information Total Hours of Sleep: 7.75 Sleep Comments: pt on q-15 minute checks Meal Information Percent Meal Consumed - Breakfast: 75 Percent Meal Consumed - Lunch: 100 Percent Meal Consumed - Dinner: 100 Subjective Subjective Patient was seen & assessed and interval progress reviewed with treatment team. Staff report she had a meeting with her and the nursing home social worker yesterday, during which they clarified that she is spending her days alone in the dorm room they live in, while her children go to daycare, and have financial strain, as she was the primary bread winner and lost her job. She has been looking for jobs and got one at [employer], but feels it is beneath her. She expressed a desire to m ove back to [place] where her in laws live, but was not in favor of that. On my assessment, she reports anxiety is her biggest problem currently, "I just wake up and it's like a gun goes off, like a race." Worries about "everything, my kids, past events, the future." Does not feel anxiety has improved since admission, but being distracted does help. Describes rapid onset of symptoms in the period, was seen by Dr. Downing day 1, and says she has had multiple hospitalizations in the past 5 months, and feels "it's just getting worse." She feels hopeless about treatment and her condition, has considered ECT "I read up on it myself." She denies SI and hallucinations, but feels unable to function well, is not showering here (once in 4 days) because she doesn't like the shampoo here. Appetite is "fine," and sleep has been good, but wakes up feeling anxious. She is using hydroxyzine for anxiety and it is helpful. Sedation has improved with moving risperidone to . She states her family meeting wasn't helpful because "we didn't even know what to talk about," and "I don't know the point." Reviewed the point of the family meeting, including review of her triggers (being home alone with "nothing to do"), how her can best support her, and reviewing her safety plan. She thinks the job at [employer] will be good for her as it will keep her busy, while she looks for a job in her field. She feels her is helpful with taking care of their children. Although she wanted to consider moving back to [place] with his parents, she now thinks this isn't a reasonable option as neither of them have jobs there, and his parents are hoarders. They are hoping she will get a new job so they can move elsewhere, as doesn't like his current job. Physical Exam Psychiatric Orientation: alert and cooperative Apperance: appropriately dressed, + disheveled and appeared stated age Obese WF, dressed in black leggings and a sweater. Hair appears unwashed, pulled back in messy bun. Seated in NAD, wearing glasses. Caml and cooperative. Eye Contact: good eye contact Motor Behavior: steady gait and station and no abnormal motor movements Speech: normal rate/rhythm/volume of speech Affect: + depressed affect and mood congruent with affect Mood: + depressed mood and + anxious mood Thought Process: goal directed thought process Thought Content: reality based without delusions Suicidal Thoughts: denies suicidal thoughts Homicidal Thoughts: denies homicidal thoughts Hallucinations: no auditory hallucinations and no visual hallucinations Cognition: recent memory grossly intact, attention grossly intact and language grossly intact Estimated Intelligence: consistent with education level Insight: + fair insight Judgement: + fair judgement Vital Signs (Past 24 Hours) Last Vital Signs Temp 36.7 C 08/24/20 06:52 Pulse 97 H 08/24/20 06:54 Resp 16 08/24/20 06:52 BP 120/84 08/24/20 06:54 Pulse Ox 98 08/20/20 16:07 Results & Data ([facility]) Current Inpatient Medications Current Inpatient Medications: Current Inpatient Medications Acetaminophen (Acetaminophen 325 Mg Tab) 650 mg PO Q4H PRN PRN Reason: Headache or Minor Fever Stop: 09/19/20 14:47 Al Hydrox/Mg Hydrox/Simethicone (Aluminum/Magnesium Susp 30 Ml Udc) 30 ml PO Q4H PRN PRN Reason: GI Upset Stop: 09/19/20 14:47 Bismuth Subsalicylate (Bismuth Subsalicylate Liqd 236 Ml) 15 ml PO PRN PRN PRN Reason: Loose Stool Stop: 09/19/20 14:47 Clonazepam (Clonazepam 1 Mg Tab) 1 mg PO DAILY PRN PRN Reason: Anxiety Stop: 09/19/20 16:52 Last Admin: 08/22/20 11:42 Dose: 1 mg Documented by: Escitalopram Oxalate (Escitalopram Oxalate 20 Mg Tab) 20 mg PO HS PAULO Stop: 09/22/20 21:59 Last Admin: 08/23/20 21:11 Dose: 20 mg Documented by: Hydroxyzine HCl (Hydroxyzine Hcl 25 Mg Tab) 50 mg PO HSZ PRN PRN Reason: Insomnia Stop: 09/19/20 14:47 Last Admin: 08/20/20 20:30 Dose: 50 mg Documented by: Hydroxyzine HCl (Hydroxyzine Hcl 25 Mg Tab) 25 mg PO Q4H PRN PRN Reason: Anxiety Stop: 09/19/20 14:47 Last Admin: 08/23/20 13:50 Dose: 25 mg Documented by: Influenza Virus Vaccine Quadrival (Influenza Virus Quad Vaccine 0.5 Ml Syr) 0.5 ml IM .ONCE ONE Stop: 08/24/20 09:01 Magnesium Hydroxide (Magnesium Hydroxide Susp 30 Ml Udc) 30 ml PO DAILY PRN PRN Reason: Constipation Stop: 09/19/20 14:47 Multivitamins (Multivitamin Tab) 1 tab PO DAILY PAULO Stop: 09/20/20 08:59 Last Admin: 08/23/20 09:21 Dose: 1 tab Documented by: Risperidone (Risperidone 3 Mg Tablet) 3 mg PO HS PAULO Stop: 09/23/20 21:59 Sodium Chloride (Sodium Chloride 0.65% Na Soln 45 Ml ([place])) 1 - 2 sprays NA PRN PRN PRN Reason: Nasal Dryness/Congestion Stop: 09/19/20 14:47 Vitamin D (Cholecalciferol 1,000 Units 25 Mcg Tab) 1,000 units PO DAILY PAULO Stop: 09/20/20 08:59 Last Admin: 08/23/20 09:21 Dose: 1,000 units Documented by: Mental Health & Subst Abuse Tx Psychiatrist Date of Appointment with Psychiatrist: 08/27/20 Time of Appointment with Psychiatrist: 9:45? Therapist Name of Therapist: none Post Discharge Appointments Primary Care Physician Name Of Family Doctor: none
[2020-08-24] MEDS: hydrOXYzine HCl 25 MG TAB PO PRN ×3 (08:47→17:01)
[2020-08-24] MEDS: MULTIVITAMIN TAB PO SCH (08:47)
[2020-08-24] MEDS: CHOLECALCIFEROL 1,000 UNITS 25 MCG TAB PO SCH (08:47)
[2020-08-24] MEDS ORDERED: INFLUENZA VIRUS QUAD VACCINE 0.5 ML SYR IM ONE (09:00)
[2020-08-24] MEDS ORDERED: INFLUENZA ADMINISTRATION CHARGE ONE (09:00)
[2020-08-24] MEDS: ESCITALOPRAM OXALATE 20 MG TAB PO SCH (20:54)
[2020-08-24] MEDS ORDERED: risperiDONE 3 MG TABLET PO SCH (22:00)
[2020-08-25] MEDS: hydrOXYzine HCl 25 MG TAB PO PRN ×2 (06:15→09:30)
[2020-08-25] MEDS: CHOLECALCIFEROL 1,000 UNITS 25 MCG TAB PO SCH (08:53)
[2020-08-25] MEDS: MULTIVITAMIN TAB PO SCH (08:53)
--- NOTE | 2020-08-25 09:37 | Discharge Summary ---
Date of Service August 25, 2020 History of Present Illness The patient is a 30-year-old woman who has a known diagnosis of bipolar disorder, as well as a past history of depression. She gave to her youngest child approximately 5 months ago and, subsequent to the of the child, the patient has been experiencing progressive symptoms of depression that have included depressed mood, irritable mood, fatigue, difficulty concentrating, apathy, anergia, anhedonia, and anxious distress. Further, the patient has been experiencing suicidal thoughts and, beginning approximately 2 or 3 days ago the patient began to experience what she, herself, refers to as "auditory hallucinations." The patient notes that she hears these voices as if an unseen person is talking to her, but she says that she knows perfectly well that she is experiencing hallucinations and does not believe that the voices are coming from any real entity. Nevertheless, she finds the voices to be distressing because the content of the voices are derogatory and, in addition, tell her to "go ahead" and kill herself. The patient reports that she was diagnosed with depression when she was in high school. In her early 20s she had her first manic episode. She reports that when experiencing eulalia or hypomania she demonstrates increased energy, elated and expansive mood, decreased desire for sleep, and impulsive behaviorsparticularly related to spending. 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 (The patient is aware of that this termination, at least as described by the patient, would possibly be unlawful under the terms of the Americans with disabilities act, but she explains that she hopes in the future to find another job in academia and believes that if she attempts to fight her termination she will be unlikely to find another job in the future. As a result of her termination, the patient and her are having some financial difficulties. She reports that her is very supportive, and, recently, his parents (the patient's [id number] and [id number]) have come to stay with the family in order to help. She also enjoys the active support of her mother who lives nearby and [place], [place]. Patient explains that she has always had difficulty responding to psychiatric medications. However, she notes that for many years she did "quite well" on Lexapro 20 mg a day and bupropion (dose unspecified), but when retrying them recently during a psychiatric hospitalization at [facility] this year she felt that they were effective and she thought that perhaps Wellbutrin was causing her to have "nightmares." She has responded poorly to several selective serotonin reuptake inhibitors. She also notes that she could not tolerate buspirone, and had what she referred to as "a whole lot of side effects" from lithium. A recent change in her outpatient medications is an increase in her aripiprazole from 20 mg a day to 30 mg a day. The patient adamantly insists that the dose was increased from 20 mg a day to a dose of 50 mg a day, and she notes that she has the prescription bottle at home and it clearly reads "50 mg." I asked if she takes more than 1 tablet of aripiprazole per day, and she replied in the negative and said "no, they are 50 mg tablets." She seemed unwilling to accept that aripiprazole does not come in a 50 mg tablet, nor was she able to except my attempt to assure her that it seems unlikely that a provider would more than double her dose from 20 mg a day to 50 mg a day. In any event, the patient says that she feels that her symptoms have gotten worse since the dose of aripiprazole was increased. Physical Exam Psychiatric Orientation: alert and cooperative Apperance: appropriately dressed, appropriately groomed and appeared stated age Eye Contact: good eye contact Motor Behavior: steady gait and station and no abnormal motor movements Speech: normal rate/rhythm/volume of speech Affect: + blunted affect "A little anxious." Thought Process: goal directed thought process Thought Content: reality based without delusions Suicidal Thoughts: denies suicidal thoughts Homicidal Thoughts: denies homicidal thoughts Hallucinations: no auditory hallucinations and no visual hallucinations Cognition: recent memory grossly intact, attention grossly intact and language grossly intact Estimated Intelligence: consistent with education level Insight: + fair insight Judgement: + fair judgement Vital Signs (Past 24 Hours) Last Vital Signs Temp 36.8 C 08/25/20 06:46 Pulse 97 H 08/25/20 06:47 Resp 16 08/25/20 06:46 BP 131/87 08/25/20 06:47 Pulse Ox 98 08/20/20 16:07 Principal Diagnosis Bipolar disorder type I, current episode depressed with psychosis Psychiatric Data The patient was hospitalized for 5 days. On admission, aripiprazole was discontinued due to inefficacy, and she was started on risperidone, and escitalopram was started to target mood and anxiety. Hydroxyzine and clonazepam as needed for anxiety were continued. Nonpharmacologic options were reviewed as well, including ECT, and she ultimately opted to give medications a try with future consideration of ECT if they are ineffective. She was referred for outpatient therapy, and to [facility] for a PCP. Auditory hallucinations and suicidal thoughts resolved, and mood improved. She was noted to be sleeping and eating well on the unit, and attending and participating in groups and therapy. She was able to identify healthy coping skills, including structure days and distraction. She had a family meeting with her and the social work coordinator on 08/23/2020, during which they discussed their various psychosocial stressors. She took medications as prescribed and tolerated them well. Day of Discharge Assessment Staff report the patient rated her mood a 7/10, and has been spending free time out of her room socializing with peers. She has been utilizing hydroxyzine 2-4 times a day for anxiety with good effect. On my assessment, she reports mood has improved from admission, she denies hallucinations and suicidal thoughts, and feels safe to leave the hospital. She wants to be able to attend orientation tomorrow for her new job as a rn procedures at [employer], noting that being busy and having something to focus on helps to reduce her anxiety. 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 She asked multiple appropriate questions about medications, including the indication for each medication, which was reviewed again, as well as the need to allow for a full trial (1 to 2 months) to determine efficacy. We also discussed the role of therapy and behavioral techniques to improve mood and manage anxiety, and the option of ECT if medications are insufficiently effective. She expressed unders tanding, and although she reports some anxiety about discharge, feels able to manage it and was able to review her coping skills and discharge safety plan. Transition of Care Transition Of Care Record: was reviewed with the patient Advance Directives Advance Directives Information Provided: Yes Advance Directives: No Mental Health Advance Directive: No Advance Directives on File: No Living Will: No Power of Heating Element Builder: No Advance Directives Reason:: Declines as Mental Health Visit. Risk Factors Assessment Risk factors were mitigated by admission to the inpatient unit, use of medications to target mood, psychotic, and anxiety symptoms, education about her diagnoses and the recommended treatment, involving her in groups and therapy, working on healthy coping skills and a discharge safety plan, family meeting with the social work coordinator and her , and referral for psychotherapy and PCP. She has demonstrated improvement in mood and anxiety symptoms, resolution of hallucinations and suicidal thoughts, is eating and sleeping well, performing ADLs independently, and taking medications without difficulty. She is requesting discharge, and as she has no longer at acute risk of harm to herself, can be managed as an outpatient at this time. Male: No : Yes Do You Have Access To A Gun?: No Health Problems: No Mental Health Diagnoses: Yes Substance Use Disorders: No Previous Attempt: No Family History of Suicide: No Previous Psychiatric Hospitalization: Yes Hopelessness: No Smoker: No Protective Factors Assessment Jainism Beliefs: Yes : Yes Responsible for Young Children: Yes Employed: No Stable Relationships: Yes Supportive Family: Yes Good Rapport with Provider: Yes Absence of Any Risk Factors Above: No Tobacco Cessation at Discharge Tobacco Cessation Medication Prescribed at Discharge: Not Applicable/Non-Smoker Total Time Total Time Spent: Greater Than 30 Minutes Total Time Includes: Examination of the patient, Discharge Planning and Medication Reconciliation Discharge Data Lab Results 08/20/20 08/20/20 08/20/20 10:10 10:10 10:10 WBC RBC Hgb Hct MCV MCH MCHC RDW Std Deviation RDW Coeff of Merlin Plt Count MPV Immature Gran % (Auto) Neut % (Auto) Lymph % (Auto) Love % (Auto) Eos % (Auto) Baso % (Auto) Neut # (Auto) Lymph # (Auto) Love # (Auto) Eos # (Auto) Baso # (Auto) Immature Gran # (Auto) Sodium Potassium Chloride Carbon Dioxide Anion Gap BUN Creatinine Est Cr Clr Drug Dosing Est GFR ( Amer) Est GFR (Non-Af Amer) BUN/Creatinine Ratio Glucose Fasting Glucose Calcium Total Bilirubin AST ALT Alkaline Phosphatase Total Protein Albumin Globulin Albumin/Globulin Ratio Triglycerides Cholesterol LDL Cholesterol, Calc VLDL Cholesterol, Calc HDL Cholesterol Cholesterol/HDL Ratio TSH Urine Color Eddy Urine Appearance Clear Urine pH 7.0 Ur Specific [place] 1.008 Urine Protein Negative Urine Glucose (UA) Negative Urine Ketones Negative Urine Blood 3+ H Urine Nitrite Negative Urine Bilirubin Negative Urine Urobilinogen Negative Ur Leukocyte Esterase Negative Urine WBC (Auto) 1-5 Urine RBC (Auto) 0-4 U Hyaline Cast (Auto) 0 U Epithel Cells (Auto) 20-30 H Urine Bacteria (Auto) Negative POC Ur Test NEG Salicylates Urine Opiates Screen Neg Ur Methadone, Qual Neg Acetaminophen Urine Barbiturates Neg Ur Phencyclidine (PCP) Neg U Amphetamin/Meth Scrn Neg MDMA (Ecstasy) Screen Neg U Benzodiazepines Scrn Neg Ur Cocaine Metabolite Neg U Marijuana (THC) Screen Neg Ethyl Alcohol mg/dL COVID-19 Eval Order SARS-CoV-2, RNA, NAAT 08/20/20 08/20/20 08/20/20 11:30 11:30 11:30 WBC 4.88 RBC 4.37 Hgb 12.4 Hct 37.8 MCV 86.5 MCH 28.4 MCHC 32.8 RDW Std Deviation 42.5 RDW Coeff of Merlin 13.3 Plt Count 282 MPV 9.7 Immature Gran % (Auto) 0.2 Neut % (Auto) 62.7 Lymph % (Auto) 31.4 Love % (Auto) 4.7 Eos % (Auto) 0.8 Baso % (Auto) 0.2 Neut # (Auto) 3.06 Lymph # (Auto) 1.53 Love # (Auto) 0.23 Eos # (Auto) 0.04 Baso # (Auto) 0.01 Immature Gran # (Auto) 0.01 Sodium 142 Potassium 3.8 Chloride 111 H Carbon Dioxide 25 Anion Gap 5.0 BUN 13 Creatinine 1.09 Est Cr Clr Drug Dosing 96.2 Est GFR ( Amer) 78.3 Est GFR (Non-Af Amer) 67.6 BUN/Creatinine Ratio 11.6 Glucose 108 H Fasting Glucose Calcium 9.3 Total Bilirubin 0.3 AST 22 ALT 32 Alkaline Phosphatase 57 Total Protein 7.6 Albumin 3.7 Globulin 3.9 Albumin/Globulin Ratio 0.9 Triglycerides Cholesterol LDL Cholesterol, Calc VLDL Cholesterol, Calc HDL Cholesterol Cholesterol/HDL Ratio TSH 2.120 Urine Color Urine Appearance Urine pH Ur Specific [place] Urine Protein Urine Glucose (UA) Urine Ketones Urine Blood Urine Nitrite Urine Bilirubin Urine Urobilinogen Ur Leukocyte Esterase Urine WBC (Auto) Urine RBC (Auto) U Hyaline Cast (Auto) U Epithel Cells (Auto) Urine Bacteria (Auto) POC Ur Test Salicylates < 1.7 L Urine Opiates Screen Ur Methadone, Qual Acetaminophen < 2 L Urine Barbiturates Ur Phencyclidine (PCP) U Amphetamin/Meth Scrn MDMA (Ecstasy) Screen U Benzodiazepines Scrn Ur Cocaine Metabolite U Marijuana (THC) Screen Ethyl Alcohol mg/dL COVID-19 Eval Order SARS-CoV-2, RNA, NAAT 08/20/20 08/20/20 08/20/20 11:30 12:00 12:00 WBC RBC Hgb Hct MCV MCH MCHC RDW Std Deviation RDW Coeff of Merlin Plt Count MPV Immature Gran % (Auto) Neut % (Auto) Lymph % (Auto) Love % (Auto) Eos % (Auto) Baso % (Auto) Neut # (Auto) Lymph # (Auto) Love # (Auto) Eos # (Auto) Baso # (Auto) Immature Gran # (Auto) Sodium Potassium Chloride Carbon Dioxide Anion Gap BUN Creatinine Est Cr Clr Drug Dosing Est GFR ( Amer) Est GFR (Non-Af Amer) BUN/Creatinine Ratio Glucose Fasting Glucose Calcium Total Bilirubin AST ALT Alkaline Phosphatase Total Protein Albumin Globulin Albumin/Globulin Ratio Triglycerides Cholesterol LDL Cholesterol, Calc VLDL Cholesterol, Calc HDL Cholesterol Cholesterol/HDL Ratio TSH Urine Color Urine Appearance Urine pH Ur Specific [place] Urine Protein Urine Glucose (UA) Urine Ketones Urine Blood Urine Nitrite Urine Bilirubin Urine Urobilinogen Ur Leukocyte Esterase Urine WBC (Auto) Urine RBC (Auto) U Hyaline Cast (Auto) U Epithel Cells (Auto) Urine Bacteria (Auto) POC Ur Test Salicylates Urine Opiates Screen Ur Methadone, Qual Acetaminophen Urine Barbiturates Ur Phencyclidine (PCP) U Amphetamin/Meth Scrn MDMA (Ecstasy) Screen U Benzodiazepines Scrn Ur Cocaine Metabolite U Marijuana (THC) Screen Ethyl Alcohol mg/dL < 3.0 COVID-19 Eval [facility] SARS-CoV-2, RNA, NAAT NEGATIVE 08/22/20 09:05 WBC RBC Hgb Hct MCV MCH MCHC RDW Std Deviation RDW Coeff of Merlin Plt Count MPV Immature Gran % (Auto) Neut % (Auto) Lymph % (Auto) Love % (Auto) Eos % (Auto) Baso % (Auto) Neut # (Auto) Lymph # (Auto) Love # (Auto) Eos # (Auto) Baso # (Auto) Immature Gran # (Auto) Sodium Potassium Chloride Carbon Dioxide Anion Gap BUN Creatinine Est Cr Clr Drug Dosing Est GFR ( Amer) Est GFR (Non-Af Amer) BUN/Creatinine Ratio Glucose Fasting Glucose 93 Calcium Total Bilirubin AST ALT Alkaline Phosphatase Total Protein Albumin Globulin Albumin/Globulin Ratio Triglycerides 326 H Cholesterol 254 H LDL Cholesterol, Calc 153 VLDL Cholesterol, Calc 65 HDL Cholesterol 36 Cholesterol/HDL Ratio 7 TSH Urine Color Urine Appearance Urine pH Ur Specific [place] Urine Protein Urine Glucose (UA) Urine Ketones Urine Blood Urine Nitrite Urine Bilirubin Urine Urobilinogen Ur Leukocyte Esterase Urine WBC (Auto) Urine RBC (Auto) U Hyaline Cast (Auto) U Epithel Cells (Auto) Urine Bacteria (Auto) POC Ur Test Salicylates Urine Opiates Screen Ur Methadone, Qual Acetaminophen Urine Barbiturates Ur Phencyclidine (PCP) U Amphetamin/Meth Scrn MDMA (Ecstasy) Screen U Benzodiazepines Scrn Ur Cocaine Metabolite U Marijuana (THC) Screen Ethyl Alcohol mg/dL COVID-19 Eval Order SARS-CoV-2, RNA, NAAT Hospital Course (1) At high risk for suicide: 08/21/20 -The patient reports intensifying thoughts of suicide, combined with command auditory hallucinations as referenced above. She notes that she does not currently have suicidal intent, but is very concerned that her depression is bec oming progressively worse, her suicidal thoughts are becoming more intense, and she is quite distressed by the command hallucinations. -We will treat the auditory hallucinations with risperidone after discontinuing aripiprazole. The patient also is on suicide precautions and is closely monitored. She convincingly agrees to contract for her own safety on the unit, and says that she is not having any thoughts of harming herself here. 08/24 -auditory hallucinations have responded to risperidone and resolved. 08/25 -SI and command AH have resolved. Patient is able to review her discharge safety plan, and denies acute safety concerns. (2) Bipolar disorder with severe depression: 08/21/20 -The patient has been admitted to the [facility] and has been referred for various modalities of psychiatric treatment, including individual, group, recreational, and family interventions. We are anticipating several adjustments in her medication regimen. As noted above, the patient reports that her symptoms of depression did not seem to respond to aripiprazole 20 mg a day, and worsened when the dose was increased to 30 mg a day (the patient insists that it was increased to 50 mg a day, but this is not the case). Accordingly, with the patient's agreement, we will discontinue aripiprazole at this point and start the patient on risperidone and titrate as indicated and tolerated. Also, she reports a past history of a favorable response "for many years" to Lexapro, 20 mg a day, in combination with bupropion. The plan is to begin Lexapro and risperidone, and add bupropion as indicated and required. (She does note that with bupropion she has the side effect of "frequent nightmares," and if this is reinstituted it may be necessary to add prazosin to the medication regimen.) 08/22 - Patient's diagnosis of bipolar disorder will be further assessed since she does not have a significant hypomanic or manic episode in the past. - The recent episode of patient's depression was triggered right after the delivery of her third baby about 5 months ago, which is contradicting from her first statement in initial evaluation yesterday. - Escitalopram 10 mg will be titrated up further tomorrow evening because that she cannot tolerate escitalopram in the morning due to fatigue. 08/23 - Patient states that patient's depressive mood has been less noticeable because of increased anxious feeling. - Patient has been experiencing anxious feeling since the admission and it has been addressed with as needed use of hydroxyzine 25 mg with relief. - Escitalopram will be titrated to 20 mg this evening since patient used to be on 20 mg for 7 years without any side effects and patient agrees with this. 08/24 - Continue escitalopram 20 mg and risperidone 3 mg at bedtime. - Again reviewed the option of ECT, including the facilities where it is offered, and offered to make a referral if the patient would like to pursue it. She would like to work toward discharge and outpatient treatment at this time, with ECT as a future option if treatment is ineffective/insufficient for symptom control. - Patient has been referred to Marilyn Garcia LCSW for therapy. 08/25 -Prescriptions issued for escitalopram and risperidone, as well as hydroxyzine 25 mg up to 4 times daily as needed for anxiety. Discussed that the hydroxyzine would be a short-term prescription until her other medications have time to be fully effective. Encouraged her to continue to work on coping skills and behavioral techniques for managing anxiety and therapy, as well as working on structuring her days at home, as distraction has been beneficial for her. (3) Auditory hallucinations: 08/21/20 -Patient reports the first time onset of auditory hallucinations approximately 2 or 3 days ago. These "voices" are typically derogatory in nature and come among other things, command her to commit suicide. The patient does have insight into the fact that these "voices" are not real, and she freely identifies them as hallucinations. She also notes that she is aware that hallucinations or symptoms of psychosis. However, she is also experiencing intensifying thoughts of suicide and the command hallucinations are extremely distressing to her because she fears that she may at some point act on them. 08/22 -Patient states that her auditory hallucinations have been getting better since she started risperidone and risperidone will be titrated to 2 mg this evening and if she tolerates them without side effects, then 2 mg twice daily will be scheduled. 08/23 -Patient denies auditory hallucinations. Patient has been tolerating risperidone 3 mg a day without significant side effects except daytime fatigue and drowsiness. Risperidone 3 mg will be tried before bedtime from tomorrow evening. Further titration of risperidone will be held until escitalopram is maximized first. 08/24 -Continue risperidone. Fasting labs for monitoring on an atypical antipsychotic from 08/22/2020 were reviewed; triglycerides 326, cholesterol 254, remainder of FLP normal; glucose 93. Due to obesity and hyperlipidemia, referral made for a PCP at [facility], appointment with Dr. Bel Shelton 09/10/2020. Mental Health & Subst Abuse Tx Psychiatrist Name of Psychiatrist: Patricia Ho at [facility] Date of Appointment with Psychiatrist: 08/27/20 Therapist Name of Therapist: Marilyn Garcia Therapist's Date of Therapist Appointment: 09/02/20 Time of Therapist Appointment: 9:00am Therapy Appointment Comment: [address], [place], [place] Post Discharge Appointments Primary Care Physician Name Of Family Doctor: Dr Bel Shelton- [facility] Primary Care Date of Appointment with PCP: 09/10/20 Time of Appointment with PCP: 9:50am Provider Appointment Comment: [address], [place], [place] Smoking Cessation Counseling Tobacco Cessation Medication Prescribed at Discharge: Not Applicable/Non-Smoker Discharge Plan Discharge Items Patient Disposition: Home - Self-Care Reason For Visit: BIPOLAR DISORDER SI Discharge Diagnosis: Bipolar disorder, most recent episode depressed with psychosis Activity: Per Instructions section Non-emergency contact: Primary Care Provider, Psychiatrist and Therapist Call non-emergency contact if: you have any medication questions and your symptoms worsen Follow-up/Referrals: PCP,NO [Primary Care Provider] - Diet: Regular Addtl Attending Provider Instructions: SPECIAL CARE INSTRUCTIONS: 1. Follow through with your scheduled aftercare appointments. If unable to keep an appointment, please call to reschedule. 2. Take your medication only as prescribed. Medication should not be changed or stopped without the approval of your doctor. In the event of worsening symptoms or concerns about side effects, contact your doctor immediately. 3. Utilize new healthy coping skills, anger management skills, and stress management skills learned during your hospitalization. Journal feelings and process them with a support person. Identify stressors or situations that may result in relapse, deterioration or inappropriate behaviors and develop a plan to deal with those issues. 4. If your coping skills are ineffective and you are in crisis, contact your outpatient providers for direction. If unable to reach your providers, please call the [facility] CRISIS LINE AT , go to the [facility] walk-in center at [address], [address], [place], or go to the closest Emergency Room. 5. Avoid alcohol and un-prescribed drugs. 6. You have been provided with the Mental Health Advance Directives Pamphlet for your review. AFTERCARE APPOINTMENTS: * Please call your insurance company prior to your scheduled appointment to confirm your aftercare providers are covered. Take your insurance information to your a ppointments. WHO TO CALL AND WHEN: Medical Emergencies: For questions or emergencies related to your hospital stay, please contact the Inpatient Behavioral Health Unit at [phone]. A site leasing agent is on-call 05/06 for the Behavioral Health Unit for emergencies At any time you feel your situation is an emergency, you may also call 911 immediately. Pending Studies at Discharge: No Stand-Alone Forms: My [facility], Smoking Cessation, Suicide Prevention Resources Medications and DC Order Prescriptions: New escitalopram oxalate 20 mg Tablet 20 mg PO HS Qty: 30 RF: 0 hydroxyzine HCl 25 mg Tablet 25 mg PO Q4H PRN (Reason: anxiety) Qty: 60 RF: 0 risperidone 3 mg Tablet 3 mg PO HS Qty: 30 RF: 0 Continued clonazepam 1 mg tablet 1 mg PO UD PRN (Reason: Anxiety) RF: 0 cholecalciferol (vitamin D3) [Vitamin D3] 25 mcg (1,000 unit) Capsule 25 mcg PO DAILY RF: 0 Gummies Girls' Multivitamins Tablet,Chewable 1 tab PO DAILY RF: 0 Discontinued aripiprazole 10 mg tablet 30 mg PO DAILY RF: 0 hydroxyzine HCl 10 mg tablet 50 mg PO TID PRN (Reason: Anxiety) RF: 0 Discharge Orders: Discharge Order (Routine); Ordered 08/25/20 Ordered By: Lidia Ovalle Admission Data Admit Date/Time: 08/20/20 14:48 Attending Provider: Lidia Ovalle Admit Provider: Lidia Ovalle Primary Care Provider: PCP,NO Other Interventions: PSY Interdisciplinary Discharge Planning Last Done: 08/24/20 13:40 Coding Level of Care Code 63274 D/C day mgmt > 30 min Diagnoses At high risk for suicide Z91.89 Bipolar disorder with severe depression F31.4 Auditory hallucinations R44.0
== END 2020-08-25 11:11 | disposition home or self-care (01) | DRG 885 ==
LOC: ED 09:49 → 3S 14:48